=== PATIENT | female | born 1945 | race Caucasian/White ===

== ENCOUNTER 2018-11-08 05:23 | Inpatient (IN) ==
[2018-11-08] MEDS ORDERED: IPRATROPIUM/ALBUTEROL 3 ML AMPUL.NEB NEB ONE (05:34)
[2018-11-08] MEDS ORDERED: methylPREDNISolone SOD SUCC 125 MG/2 ML VIAL IV ONE (06:07)
--- NOTE | 2018-11-08 06:14 | XRay Report ---
CLINICAL INFORMATION: short of breath COMPARISON: 08/11/2013. FINDINGS: The heart is moderately enlarged - increased from prior x-ray. The mediastinum and pulmonary vessels are normal. Moderate patchy infiltration involving both bases. No effusions. IMPRESSION: Moderate patchy bibasilar infiltrates - likely aspiration or infection Moderate cardiomegaly, but no evidence CHF Interpreted and Authenticated by: Judd Birmingham 11/08/18
--- NOTE | 2018-11-08 06:23 | Emergency Department Note ---
SOB HPI - General Chief Complaint: Shortness of Breath/Dyspnea Stated Complaint: Short of Breath Time Seen by Provider: 11/08/18 06:17 - History of Present Illness 73-year-old female with known type 2 diabetes, chronic kidney disease stage III managed by , last seen just one month prior with increased pedal edema increased her Lasix to 40 mg twice a day for 3 days, as well as known chronic atrial fibrillation presenting with 2 day history of intermittent dyspnea at rest, fevers, chills, sweats. Known exposure to child with croup, with increased work of breathing. No Chest pains or palpitations. Appetite has been good, no nausea vomiting diarrhea nor constipation. Of note, patient has recently been discussing with PCP potential need for oxygen therapy. - Related Data Home Medications Medication Instructions Recorded Confirmed vitamin b-12 PO QDAY 10/14/14 10/30/18 calcium carbonate 500 mg calcium 1,000 mg PO QDAY tab 04/22/18 10/30/18 (1,250 mg) tablet cholecalciferol (vitamin D3) 1,000 2,000 unit PO QDAY cap 04/22/18 10/30/18 unit capsule levetiracetam 500 mg tablet 500 mg PO BID tab 04/22/18 10/30/18 Previous Rx's Medication Instructions Recorded diabetic shoes #1 each 06/13/15 citalopram 20 mg tablet 20 mg PO QDAY #90 tab 05/26/18 amlodipine 5 mg tablet 5 mg PO QDAY #90 tab 06/12/18 carvedilol 25 mg tablet 25 mg PO BID #180 tab 07/21/18 furosemide 40 mg tablet 40 mg PO QDAY #90 tab 07/21/18 losartan 100 mg tablet 100 mg PO QDAY #90 tab 07/21/18 gabapentin 300 mg capsule 600 mg PO TID #540 cap 09/18/18 ropinirole 2 mg tablet 2 mg PO BID #180 tab 09/22/18 calcitriol 0.25 mcg capsule 0.25 mcg PO Q OTHER DAY #45 cap 10/12/18 allopurinol 100 mg tablet 200 mg PO QDAY #180 tab 10/13/18 glipizide 5 mg tablet 5 mg PO BID #60 tab 10/20/18 docusate sodium 100 mg capsule 100 mg PO BID #180 cap 10/28/18 warfarin 5 mg tablet 5 mg PO .COMPLEX #100 tab 10/30/18 Allergies Allergy/AdvReac Type Severity Reaction Status Date / Time No Known Drug Allergies Allergy Verified 10/30/18 15:15 Review of Systems All systems ED: reviewed and negative except as stated. Past Medical History - Past Medical History Attestation: Yes: The following information was validated with the patient. Source: nursing notes reviewed Medical history: Reports: atrial fibrillation, CHF (questionable CHF, unknown if she's had an echo in the past), hypertension, renal disease - Social History smoking status: Never smoker Physical Exam Limitations: no limitations General appearance: alert, in distress (with increased work of breathing, abnormal I/E ratio) Head: atraumatic, normocephalic Eye: Present: normal appearance, PERRL, EOMI ENT: normal exam, normal oropharynx, mucous membranes moist Neck: Present: normal inspection, full ROM Chest: Present: normal inspection, symmetric chest wall rise Respiratory: Present: respiratory distress (increased work of breathing, able to speak in complete sentences), rales/crackles (bibasilar), wheezes (bibasilar), accessory muscle use, prolonged expiratory phase Cardiovascular: Present: irregular rhythm Abdominal: Present: soft. Absent: distention, tenderness, guarding, rebound Extremities: Present: pedal edema (1+ bilaterally up to mid calf) Course Vital Signs Temperature 99.5 F H 11/08/18 05:23 Pulse Rate 114 H 11/08/18 05:23 Respiratory Rate 19 11/08/18 05:23 Blood Pressure 169/115 11/08/18 05:23 Pulse Oximetry (%) 93 11/08/18 05:23 Temperature 99.5 F H 11/08/18 05:23 Pulse Rate 122 H 11/08/18 06:18 Respiratory Rate 22 11/08/18 06:18 Blood Pressure 169/115 11/08/18 05:23 Pulse Oximetry (%) 90 11/08/18 06:18 Shortness of Breath/Dyspnea - [facility] Narrative Medical decision making narrative: patient underwent XR chest which demonstrated Moderate patchy bibasilar infiltrates - likely aspiration or infection, with Moderate cardiomegaly, but no evidence of CHF. CBC demonstrating no evidence of leukocytosis, creatinine stable at 1.5. She was given DuoNeb treatment, Rocephin 1g IV, Azithromycin 500mg PO and 125mg SoluMedrol IV. Patient continues to require O2 at 4LPM to keep sp02 greater than 92%, down into low 80s% off O2. Discussed case with Dr. Cuellar, who is agreeable to admission, patient admitted for CAP as well as hypoxemic respiratory failure. - Lab Data Lab results reviewed: Yes I reviewed the patient's lab results. Result diagrams: 11/08/18 05:45 11/08/18 05:45 Lab Results 11/08/18 11/08/18 Range/Units 05:45 05:45 WBC 5.4 (4.5-11.0) K/mcL RBC 4.49 (4.00-5.20) M/mcL Hgb 14.0 (12.0-15.0) g/dL Hct 43.9 (36.0-48.0) % MCV 97.8 (80.0-100.0) fL MCH 31.2 (26.0-34.0) pg MCHC 31.9 (31.0-36.0) g/dL RDW 15.2 H (11.5-14.5) % Plt Count 189 (140-440) K/mcL MPV 7.6 (7.4-10.4) fL Gran % 66.3 (38.0-78.0) % Lymph % (Auto) 21.4 (15.5-49.0) % [place] % (Auto) 11.3 (1.0-12.0) % Eos % (Auto) 1.0 (0.0-7.0) % Baso % (Auto) 0 (0.0-2.0) % Gran # 3.6 (1.8-8.0) K/mcL Lymph # (Auto) 1.2 L (1.5-4.8) K/mcL [place] # (Auto) 0.6 (0.1-0.9) K/mcL Eos # (Auto) 0.1 (0.0-0.7) K/mcL Baso # (Auto) 0 (0.0-0.3) K/mcL Sodium 136 (133-145) mmol/L Potassium 4.3 (3.3-5.1) mmol/L Chloride 93 L (96-108) mmol/L Carbon Dioxide 28 (22-30) mmol/L Anion Gap 15.0 (8-16) BUN 28 H (8-23) mg/dl Creatinine 1.5 H (0.6-1.1) mg/dl GFR Calculation 35 Glucose 141 H (70-105) mg/dL Calcium 9.3 (8.6-10.4) mg/dl Total Bilirubin 1.3 H (0.0-1.0) mg/dL AST 18 (0-37) U/l ALT 10 (0-40) U/l Alkaline Phosphatase 90 (39-117) U/L Total Protein 7.6 (5.9-8.4) gm/dL Albumin 4.2 (3.2-5.2) gm/dL Globulin 3.4 (2.2-3.7) gm/dL Albumin/Globulin Ratio 1.2 (1.0-2.3) - Radiology Data Radiology results reviewed: Yes I reviewed the patient's radiology results. - EKG Data EKG attestation: Yes I reviewed and interpreted this EKG. Rhythm: Reports: A.Fib Interpretation: Reports: no acute changes Disposition Pt seen by [facility]AD[facility] REPAIRMAN/PA only: No Clinical Impression: Acute hypoxemic respiratory failure, CKD (chronic kidney disease), stage III, Restless leg syndrome, Type 2 diabetes mellitus with peripheral neuropathy Community acquired pneumonia Qualifiers: Laterality: right Lung location: lower lobe of lung Qualified Code(s): J18.1 - Lobar pneumonia, unspecified organism Disposition: Xfer As Inpt ([facility]) Referrals: Te Joyce MD [Primary Care Provider] -
[2018-11-08 06:50] LABS: Basophils # (Auto) 0 K/mcL (0.0-0.3); Basophils % (Auto) 0 % (0.0-2.0); Eosinophils # (Auto) 0.1 K/mcL (0.0-0.7); Granulocytes % (Auto) 66.3 % (38.0-78.0); Hematocrit 43.9 % (36.0-48.0); Lymphocytes # (Auto) 1.2 K/mcL (1.5-4.8); Lymphocytes % (Auto) 21.4 % (15.5-49.0); Mean Cell Volume 97.8 fL (80.0-100.0); Mean Corpuscular HGB Conc 31.9 g/dL (31.0-36.0); Mean Platelet Volume 7.6 fL (7.4-10.4); Monocytes # (Auto) 0.6 K/mcL (0.1-0.9); Monocytes % (Auto) 11.3 % (1.0-12.0); Platelet Count 189 K/mcL (140-440); RBC 4.49 M/mcL (4.00-5.20); Red Cell Distribution Width 15.2 % (11.5-14.5); WBC 5.4 K/mcL (4.5-11.0)
[2018-11-08] MEDS ORDERED: AZITHROMYCIN 250 MG TABLET PO ONE (07:10)
[2018-11-08] MEDS ORDERED: cefTRIAXone 1 GM VIAL IV ONE ×2 (07:10→10:30)
[2018-11-08 07:20] LABS: ALT/SGPT 10 U/l (0-40); AST/SGOT 18 U/l (0-37); Albumin 4.2 gm/dL (3.2-5.2); Albumin/Globulin Ratio 1.2 (1.0-2.3); Alkaline Phosphatase 90 U/L (39-117); Bilirubin,Total 1.3 mg/dL (0.0-1.0); Blood Urea Nitrogen 28 mg/dl (8-23); Calcium 9.3 mg/dl (8.6-10.4); Carbon Dioxide 28 mmol/L (22-30); Chloride 93 mmol/L (96-108); Globulin 3.4 gm/dL (2.2-3.7); Glomerular Filtration Rate 35; Glucose 141 mg/dL (70-105)
[2018-11-08] MEDS ORDERED: rOPINIRole 0.25 MG TABLET PO ONE (07:44)
[2018-11-08 08:22] LABS: ABG Methemoglobin 0.3 % (0.4-1.5); Total Hemoglobin 13.9 gm/dL (12.0-15.0); VBG Base Excess 4.2 (-2.0-2.0); VBG HCO3 29.3 mmol/L (24.0-28.0); VBG Oxygen Saturation 93.6 % (40.0-70.0); VBG PCO2 45.5 mmHg (41.0-51.0); VBG PH 7.43 U (7.32-7.42); VBG PO2 95 mmHg (25-40); VBG Total CO2 30.7 mmol/L (25.0-29.0)
[2018-11-08 09:29] LABS: INR 1.5 (0.9-1.1); Prothrombin Time 18.1 sec (11.9-14.5)
--- NOTE | 2018-11-08 09:33 | Internal Med History&Physical ---
Medical - H&P: HPI Patient information: Note initiated : 11/08/18 at 9:29 am Service Date, if different from initiated Date: [] Patient: Aidee Zepeda a 73 y/o F admitted on for Short of Breath. Chief Complaint: [] History of present illness: Ms. Zepeda is a 73 year old F with history of diastolic heart failure, atrial fibrillation obesity presents to the hospital today for evaluation of shortness of breath. The patient notes she has chronically been short of breath for many months, she also has some intermittent dizziness that has been documented previously. This has been progressively getting worse over the last few days, early this morning around 3 or 4 she had chest tightness or chest pain as she re ports when she was sleeping. She had some cough but is unable to characterize any sputum for me. Shortness of breath is worse when she lies down chest pain is worse when she lies down better when she gets up. There is also a pleuritic nature to her chest pain which is better when she is on the lateral side rather than on her back. She therefore came to the emergency room for further evaluation. She denies any fevers yesterday, denies any difficulty in swallowing denies any cough while eating, denies any headache but does admits to chronic dizziness, she still has some chest discomfort when she lies back but not when she is sitting up, she denies any nausea vomiting abdominal pain denies any bowel bladder complaints denies any new joint pains skin rashes, she does have chronic depression anxiety otherwise no acute complaints She notes that her primary care provider wants to start her on oxygen however she is not sure why she says is because she is short of breath she denies any h istory of smoking and her last echo shows a normal ejection fraction 4 years ago, she does not want to wear a sleep apnea mask and therefore has not done the sleep study so far. On presenting to the emergency room patient had a low-grade temperature of 99.5 heart rate 100-1 20 blood pressure 169/115 saturating more than 90% but needed 4 L of oxygen. At baseline she does not use oxygen at home. The patient does not have a white count, her creatinine is 1.5 which is around baseline Chest x-ray shows bilateral pneumonia, possible aspiration, she is being admitted to the hospital for further management. EKG shows atrial fibrillation, she has low voltage, poor R wave progression in chest leads. 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 (Chronic) Plantar fasciitis (Chronic) Chronic kidney disease, stage IV (severe) (Chronic) Hypertensive renal disease (Chronic) CKD (chronic kidney disease), stage III (Chronic) History of hysterectomy (Chronic) Restless leg syndrome (Chronic) Urinary incontinence (Chronic) Vitamin D deficiency (Chronic) Renal failure (Chronic 06/27/14) Acute infective pericarditis (Chronic) Osteoarthritis (Chronic) Obesity, morbid (Chronic) Hypertension, essential (Chronic) Hyperlipidemia (Chronic) Fatigue (Chronic 05/30/14) Edema (Chronic 05/30/14) Chronic low back pain (Chronic 05/30/14) Constipation (Chronic) Vulvovaginal candidiasis (Chronic) Ankle fracture (Chronic) Diabetes mellitus, type II (Inactive) Uncontrolled type 2 diabetes mellitus with peripheral neuropathy (Inactive) Surgical history: Past Surgical History (Last Reviewed 09/29/18 @ 13:13 by Ivan Talavera MD) History of arthroscopy of right knee (Chronic) History of tonsillectomy (Chronic) History of adenoidectomy (Chronic) Pertinent family history: Family History (Last Reviewed 09/29/18 @ 13:13 by Ivan Talavera MD) Father Atherosclerosis of coronary artery Diabetes mellitus Mother Injury of head Unknown Malignant neoplasm Medical - H&P: Meds Home Medications Medication Instructions Recorded Confirmed Type vitamin b-12 PO QDAY 10/14/14 10/30/18 History diabetic shoes #1 each 06/13/15 10/30/18 Rx calcium carbonate 500 mg calcium 1,000 mg PO QDAY tab 04/22/18 10/30/18 History (1,250 mg) tablet cholecalciferol (vitamin D3) 1,000 2,000 unit PO QDAY cap 04/22/18 10/30/18 History unit capsule levetiracetam 500 mg tablet 500 mg PO BID tab 04/22/18 10/30/18 History citalopram 20 mg tablet 20 mg PO QDAY #90 tab 05/26/18 10/30/18 Rx amlodipine 5 mg tablet 5 mg PO QDAY #90 tab 06/12/18 10/30/18 Rx carvedilol 25 mg tablet 25 mg PO BID #180 tab 07/21/18 10/30/18 Rx furosemide 40 mg tablet 40 mg PO QDAY #90 tab 07/21/18 10/30/18 Rx losartan 100 mg tablet 100 mg PO QDAY #90 tab 07/21/18 10/30/18 Rx gabapentin 300 mg capsule 600 mg PO TID #540 cap 09/18/18 10/30/18 Rx ropinirole 2 mg tablet 2 mg PO BID #180 tab 09/22/18 10/30/18 Rx calcitriol 0.25 mcg capsule 0.25 mcg PO Q OTHER DAY #45 cap 10/12/18 10/30/18 Rx allopurinol 100 mg tablet 200 mg PO QDAY #180 tab 10/13/18 10/30/18 Rx glipizide 5 mg tablet 5 mg PO BID #60 tab 10/20/18 10/30/18 Rx docusate sodium 100 mg capsule 100 mg PO BID #180 cap 10/28/18 10/30/18 Rx warfarin 5 mg tablet 5 mg PO .COMPLEX #100 tab 10/30/18 10/30/18 Rx Allergies Allergy/AdvReac Type Severity Reaction Status Date / Time No Known Drug Allergies Allergy Verified 10/30/18 15:15 Medical - H&P: Exam - Constitutional Vitals: Temp Pulse Resp BP Pulse Ox 99.5 F H 122 H 22 169/115 90 11/08/18 05:23 11/08/18 06:18 11/08/18 06:18 11/08/18 05:23 11/08/18 06:18 Exam: GENERAL: The patient is a well-developed, well-nourished in no apparent distress. Is alert and oriented x3. Morbidly obese individual with significant midsize portion, thin legs VITAL SIGNS: Reviewed and as noted elsewhere. HEENT: Head is normocephalic and atraumatic. Extraocular muscles are intact. Pup ils are equal, round, and reactive to light. Nares appeared normal. Mouth appears any without lesions. Mucous membranes are moist. NECK: Normal to inspection, Supple, No lymphadenopathy or thyromegaly. LUNGS: Air entry equal on both sides, mild exp wheeze, bilbasilar crackles, pt speaking full sentences no accessory muscle use HEART: Regular rate and rhythm normal, S1 and S2 heard, no Gallop, S3 or Rub Noted, No Gross murmur heard. ABDOMEN: Soft, nontender, and nondistended. Positive bowel sounds. No hepatosplenomegaly was noted. Large obese abdomen EXTREMITIES: No cyanosis, clubbing, rash, lesions or edema. NEUROLOGIC: Cranial nerves II through XII are grossly intact. Motor and Sensory System Grossly Intact PSYCHIATRIC: Normal affect, Normal Mood. Appropriate Behavior. SKIN: No ulceration or wounds noted, No jaundice, No rash noted. Medical - H&P: Reslt - Labs CBC & Chem 7: 11/08/18 05:45 11/08/18 05:45 Labs: Short CBC 11/08/18 Range/Units 05:45 WBC 5.4 (4.5-11.0) K/mcL Hgb 14.0 (12.0-15.0) g/dL Hct 43.9 (36.0-48.0) % Plt Count 189 (140-440) K/mcL BMP 11/08/18 05:45 Sodium 136 Potassium 4.3 Chloride 93 L Carbon Dioxide 28 BUN 28 H Creatinine 1.5 H Glucose 141 H Calcium 9.3 Liver Function 11/08/18 Range/Units 05:45 Total Bilirubin 1.3 H (0.0-1.0) mg/dL AST 18 (0-37) U/l ALT 10 (0-40) U/l Alkaline Phosphatase 90 (39-117) U/L Albumin 4.2 (3.2-5.2) gm/dL - ABG Interpretation ABG results: 11/08/18 07:56 ABG Methemoglobin 0.3 L VBG pH 7.43 H VBG pCO2 45.5 VBG pO2 95 H VBG HCO3 29.3 H VBG Total CO2 30.7 H VBG O2 Saturation 93.6 H VBG Base Excess 4.2 H Medical - H&P: A/P - Narrative A/P Narrative: A/p Acute hypoxic respiratory failure -Keep oxygen > 90 , presently on 3-4L, due to active infectino Pneumonia -Aspiration pneumonia, vs CAP -Rocephin, Azithro, flagyl for now, no h/o admission to any hospital in last 3 months, no recent ABX use -send sputum cx, -send blood cultures, abx already given unfortunately. Atrial Fibrillation -mild tachycardia in ER, pt waso monika rea, monitor -resume beta blocers, -pt on coumadin for cva prophylaxis, check INR, coumadin management per pharmacy. Hypertension -BP Elevated, monitor, resume home bp meds DM -type 2 -ssi insulin for glucose control CKD, stage 3 -follows with Dr Crane -creat is 1.5, stable at baseline MOrbid obesity, bmi 45 -outpatient follow up -given predominantly central obesity, check cortisol level, tsh is neg last month -pt will benefit from outpatient sleep study Congestive heart failuire -h/o diastolic CHF? lVH on previous echo -repeat Echo Restless leg syndrome -resume home meds DVT on coumadin Diet Carb consistent,cardiac Full code Social History - Social History marital status: education level: high school occupational status: retired other: 4 children and 5 grandchildren - Tobacco smoking status: Never smoker - Alcohol alcohol intake frequency: does not drink - Substance use substance use type: marijuana
[2018-11-08] MEDS ORDERED: cloNIDine HCL 0.1 MG TABLET PO PRN (10:22)
[2018-11-08] MEDS ORDERED: oxyCODONE HCL 5 MG TABLET PO PRN (10:22)
[2018-11-08] MEDS ORDERED: ALBUTEROL SULFATE 2.5 MG/3 ML NEBULIZER NEB PRN (10:22)
[2018-11-08] MEDS ORDERED: DEXTROSE 50% 50 ML VIAL IV PRN (10:22)
[2018-11-08] MEDS ORDERED: CARVEDILOL 12.5 MG TABLET PO ONE (10:22)
[2018-11-08] MEDS ORDERED: DEXTROSE 31 GM ORAL.SUSP PO PRN (10:22)
[2018-11-08] MEDS ORDERED: NALOXONE HCL 0.4 MG/ML VIAL IV PRN (10:22)
[2018-11-08] MEDS: IPRATROPIUM/ALBUTEROL 3 ML AMPUL.NEB NEB SCH ×4 (10:58→22:57)
[2018-11-08] MEDS: metroNIDAZOLE 500 MG/100 ML BAG IV SCH ×2 (11:00→21:11)
[2018-11-08] MEDS: ACETAMINOPHEN 325 MG TABLET PO PRN ×2 (11:09→21:55)
[2018-11-08] MEDS: INSULIN LISPRO 1 UNIT/0.01 ML UNIT SQ SCH ×3 (11:47→21:10)
[2018-11-08] MEDS: rOPINIRole 1 MG TABLET PO SCH ×2 (12:29→21:11)
[2018-11-08] MEDS: GABAPENTIN 300 MG CAPSULE PO SCH ×2 (13:44→21:11)
[2018-11-08] MEDS: 0.9 % SODIUM CHLORIDE 10 ML SYRINGE IV SCH ×2 (13:45→21:12)
[2018-11-08] MEDS ORDERED: WARFARIN 7.5 MG TABLET PO ONE (14:00)
[2018-11-08] MEDS: CARVEDILOL 12.5 MG TABLET PO SCH (17:14)
[2018-11-08] MEDS: glipiZIDE 5 MG TABLET PO SCH (17:14)
[2018-11-08] MEDS: levETIRAcetam 500 MG TABLET PO SCH (21:11)
[2018-11-08] MEDS: DOCUSATE SODIUM 100 MG CAPSULE PO SCH (21:11)
[2018-11-09] MEDS: IPRATROPIUM/ALBUTEROL 3 ML AMPUL.NEB NEB SCH ×6 (02:53→23:06)
[2018-11-09] MEDS: metroNIDAZOLE 500 MG/100 ML BAG IV SCH ×3 (05:23→22:25)
[2018-11-09] MEDS: 0.9 % SODIUM CHLORIDE 10 ML SYRINGE IV SCH ×3 (05:27→22:26)
[2018-11-09 06:10] LABS: INR 1.6 (0.9-1.1); Prothrombin Time 18.7 sec (11.9-14.5)
[2018-11-09] MEDS: glipiZIDE 5 MG TABLET PO SCH ×2 (07:46→16:25)
[2018-11-09] MEDS: INSULIN LISPRO 1 UNIT/0.01 ML UNIT SQ SCH ×4 (07:46→20:52)
[2018-11-09] MEDS: CITALOPRAM 20 MG TABLET PO SCH (09:43)
[2018-11-09] MEDS: DOCUSATE SODIUM 100 MG CAPSULE PO SCH ×2 (09:43→20:51)
[2018-11-09] MEDS: levETIRAcetam 500 MG TABLET PO SCH ×2 (09:43→20:51)
[2018-11-09] MEDS: rOPINIRole 1 MG TABLET PO SCH ×2 (09:44→20:51)
[2018-11-09] MEDS: CARVEDILOL 12.5 MG TABLET PO SCH ×2 (09:44→16:25)
[2018-11-09] MEDS: LOSARTAN 50 MG TABLET PO SCH (09:44)
[2018-11-09] MEDS: amLODIPine 5 MG TABLET PO SCH (09:44)
[2018-11-09] MEDS: GABAPENTIN 300 MG CAPSULE PO SCH ×3 (09:44→20:51)
[2018-11-09] MEDS: FUROSEMIDE 40 MG TABLET PO SCH (09:44)
[2018-11-09] MEDS: VITAMIN D3 1,000 UNIT TABLET PO SCH (09:44)
[2018-11-09] MEDS: CALCIUM (OYSTER SHELL) 500 MG TABLET PO SCH (09:44)
[2018-11-09] MEDS: CALCITRIOL 0.25 MCG CAPSULE PO SCH (09:44)
[2018-11-09] MEDS: ALLOPURINOL 100 MG TABLET PO SCH (09:44)
[2018-11-09] MEDS: predniSONE 20 MG TABLET PO SCH (09:44)
[2018-11-09] MEDS: AZITHROMYCIN 250 MG TABLET PO SCH (09:44)
[2018-11-09] MEDS: cefTRIAXone 2 GM in DEXTROSE 5% IN WATER 50 ML IV SCH (09:45)
[2018-11-09 10:35] LABS: ALT/SGPT 11 U/l (0-40); AST/SGOT 15 U/l (0-37); Albumin 4.1 gm/dL (3.2-5.2); Albumin/Globulin Ratio 1.1 (1.0-2.3); Alkaline Phosphatase 81 U/L (39-117); Bilirubin,Direct < 0.2 mg/dL (0.0-0.3); Bilirubin,Total 0.4 mg/dL (0.0-1.0); Blood Urea Nitrogen 36 mg/dl (8-23); Carbon Dioxide 28 mmol/L (22-30); Chloride 95 mmol/L (96-108); Globulin 3.7 gm/dL (2.2-3.7); Glomerular Filtration Rate 38; Glucose 250 mg/dL (70-105); Lactate Dehydrogenase 296 U/L (94-250); Phosphorous 4.4 mg/dL (2.7-4.5); Triglycerides 82 mg/dl (<150); Uric Acid 6.1 mg/dL (2.5-8.0)
[2018-11-09 11:44] LABS: Basophils # (Auto) 0 K/mcL (0.0-0.3); Basophils % (Auto) 0.2 % (0.0-2.0); Eosinophils # (Auto) 0 K/mcL (0.0-0.7); Eosinophils % (Auto) 0.4 % (0.0-7.0); Granulocytes % (Auto) 84.8 % (38.0-78.0); Hematocrit 41.1 % (36.0-48.0); Hemoglobin 13.7 g/dL (12.0-15.0); Lymphocytes # (Auto) 0.7 K/mcL (1.5-4.8); Lymphocytes % (Auto) 9.8 % (15.5-49.0); Mean Cell Volume 95.5 fL (80.0-100.0); Mean Corpuscular HGB Conc 33.4 g/dL (31.0-36.0); Mean Platelet Volume 7.3 fL (7.4-10.4); Monocytes # (Auto) 0.3 K/mcL (0.1-0.9); Monocytes % (Auto) 4.8 % (1.0-12.0); Platelet Count 210 K/mcL (140-440); Red Cell Distribution Width 14.4 % (11.5-14.5); WBC 6.9 K/mcL (4.5-11.0)
--- NOTE | 2018-11-09 12:08 | Internal Med Progress Note ---
Medical - PN: Subj Patient information: Note initiated : 11/09/18 at 12:04 pm Service Date, if different from initiated Date: [] Patient: Aidee Zepeda a 73 y/o F admitted on 11/08/18 for Short of Breath. Chief Complaint: [] Interval history: Ms. Zepeda is a 73 year old F with history of diastolic heart failure, atrial fibrillation obesity presents to the hospital today for evaluation of shortness of breath. The patient notes she has chronically been short of breath for many months, she also has some intermittent dizziness that has been documented previously. This has been progressively getting worse over the last few days, early this morning around 3 or 4 she had chest tightness or chest pain as she re ports when she was sleeping. She had some cough but is unable to characterize any sputum for me. Shortness of breath is worse when she lies down chest pain is worse when she lies down better when she gets up. There is also a pleuritic nature to her chest pain which is better when she is on the lateral side rather than on her back. She therefore came to the emergency room for further evaluation. She denies any fevers yesterday, denies any difficulty in swallowing denies any cough while eating, denies any headache but does admits to chronic dizziness, she still has some chest discomfort when she lies back but not when she is sitting up, she denies any nausea vomiting abdominal pain denies any bowel bladder complaints denies any new joint pains skin rashes, she does have chronic depression anxiety otherwise no acute complaints She notes that her primary care provider wants to start her on oxygen however she is not sure why she says is because she is short of breath she denies any h istory of smoking and her last echo shows a normal ejection fraction 4 years ago, she does not want to wear a sleep apnea mask and therefore has not done the sleep study so far. On presenting to the emergency room patient had a low-grade temperature of 99.5 heart rate 100-1 20 blood pressure 169/115 saturating more than 90% but needed 4 L of oxygen. At baseline she does not use oxygen at home. The patient does not have a white count, her creatinine is 1.5 which is around baseline Chest x-ray shows bilateral pneumonia, possible aspiration, she is being admitted to the hospital for further management. EKG shows atrial fibrillation, she has low voltage, poor R wave progression in chest leads. 11/09 Patient seen and examined, sitting comfortably in her chair, on 2 L of oxygen to keep oxygen saturation more than 90% has no new complaints or concerns feels much better since yesterday. Hemodynamically stable rate well controlled. Labs are stable No growth microbiology Pertinent ROS: Denies headache, dizziness Denies chest pain, palpitations Denies cough or shortness of breath Denies abdominal pain, nausea or vomiting. - Constitutional Vitals: Vital Signs Temp Pulse Resp BP Pulse Ox 98.8 F 88 18 134/84 92 11/09/18 11:42 11/09/18 11:42 11/09/18 11:42 11/09/18 11:42 11/09/18 11:42 Period Temp Pulse Resp BP Sys/Pardo Pulse Ox Last 24 Hr 97 F-99.2 F 80-114 16-20 121-146/79-89 92-98 Intake and Output 11/08/18 11/09/18 11/09/18 21:59 05:59 13:59 Intake Total 720 300 100 Output Total 1150 500 Balance -430 -200 100 Weight 252 lb Intake & Output: Intake & Output 11/08/18 11/09/18 11/09/18 21:59 05:59 13:59 Intake Total 720 300 100 Output Total 1150 500 Balance -430 -200 100 Weight 252 lb Intake: IV 100 100 Oral 720 200 Output: Void Amount 1150 500 Other: Meal Dinner Percent of Meal Consumed 100% Feeding Ability Independent Urine Appearance Clear Clear Urine Color Bright Yellow Bright Yellow Urine Odor Normal Normal Stool Size Moderate Stool Color Brown Stool Consistency Loose # Voids 1 # Bowel Movements 1 Exam: Constitutional; Afebrile, cooperative, alert, not in distress. Respiratory system: Air Entry equal on both sides, No crackles or wheezing, no rhonchi. CVS- Rate rhythm regular, S1,S2 heard, no gallop, no rub. 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 Medical - PN: Obj Da - Labs CBC & Chem 7: 11/09/18 10:06 11/09/18 09:16 Labs: Abnormal Lab Results 11/09/18 11/09/18 11/09/18 10:06 09:16 04:39 RDW MPV 7.3 L Gran % 84.8 H Lymph % (Auto) 9.8 L Lymph # (Auto) 0.7 L PT 18.7 H INR 1.6 H ABG Methemoglobin VBG pH VBG pO2 VBG HCO3 VBG Total CO2 VBG O2 Saturation VBG Base Excess Carboxyhemoglobin Chloride 95 L BUN 36 H Creatinine 1.4 H Glucose 250 H Total Bilirubin GGT 53 H Lactate Dehydrogenase 296 H 11/08/18 11/08/18 11/08/18 07:56 05:45 05:45 RDW 15.2 H MPV Gran % Lymph % (Auto) Lymph # (Auto) 1.2 L PT INR ABG Methemoglobin 0.3 L VBG pH 7.43 H VBG pO2 95 H VBG HCO3 29.3 H VBG Total CO2 30.7 H VBG O2 Saturation 93.6 H VBG Base Excess 4.2 H Carboxyhemoglobin 3.5 H Chloride 93 L BUN 28 H Creatinine 1.5 H Glucose 141 H Total Bilirubin 1.3 H GGT Lactate Dehydrogenase 11/08/18 05:15 RDW MPV Gran % Lymph % (Auto) Lymph # (Auto) PT 18.1 H INR 1.5 H ABG Methemoglobin VBG pH VBG pO2 VBG HCO3 VBG Total CO2 VBG O2 Saturation VBG Base Excess Carboxyhemoglobin Chloride BUN Creatinine Glucose Total Bilirubin GGT Lactate Dehydrogenase Meds: Medications Acetaminophen (Tylenol) 650 mg PO Q6HP PRN PRN Reason: PAIN/FEVER > 101 Last Admin: 11/08/18 21:55 Dose: 650 mg Documented by: Albuterol Sulfate (Ventolin) 2.5 mg NEB Q2HP PRN PRN Reason: Shortness Of Breath Albuterol/Ipratropium (Duoneb) 3 ml NEB Q4HRT [facility] Last Admin: 11/09/18 11:08 Dose: 3 ml Documented by: Allopurinol (Zyloprim) 200 mg PO QDAY [facility] Last Admin: 11/09/18 09:44 Dose: 200 mg Documented by: Amlodipine Besylate (Norvasc) 5 mg PO QDAY [facility] Last Admin: 11/09/18 09:44 Dose: 5 mg Documented by: Azithromycin (Zithromax) 250 mg PO DAILY [facility]; Protocol Stop: 11/12/18 09:01 Last Admin: 11/09/18 09:44 Dose: 250 mg Documented by: Calcitriol (Rocaltrol) 0.25 mcg PO Q48@0900 [facility] Last Admin: 11/09/18 09:44 Dose: 0.25 mcg Documented by: Calcium Carbonate/Glycine (Oscal) 1,000 mg PO QDAY [facility] Last Admin: 11/09/18 09:44 Dose: 1,000 mg Documented by: Carvedilol (Coreg) 25 mg PO BIDCC [facility] Last Admin: 11/09/18 09:44 Dose: 25 mg Documented by: Citalopram Hydrobromide (Celexa) 20 mg PO QDAY [facility] Last Admin: 11/09/18 09:43 Dose: 20 mg Documented by: Clonidine HCl (Catapres) 0.1 mg PO Q4HP PRN PRN Reason: Hypertension Dextrose (Dextrose 50%) 0 ml IV UD PRN PRN Reason: Hypoglycemia Diagnostic Test (Pha) (Accu-Chek) 1 each FS ACHS [facility] Last Admin: 11/09/18 11:36 Dose: 1 each Documented by: Docusate Sodium (Colace) 100 mg PO BID [facility] Last Admin: 11/09/18 09:43 Dose: 100 mg Documented by: Furosemide (Lasix) 40 mg PO QDAY [facility] Last Admin: 11/09/18 09:44 Dose: 40 mg Documented by: Gabapentin (Neurontin) 600 mg PO TID [facility] Last Admin: 11/09/18 09:44 Dose: 600 mg Documented by: Glipizide (Glucotrol) 5 mg PO BIDAC [facility] Last Admin: 11/09/18 07:46 Dose: 5 mg Documented by: Glucose (Insta-Glucose) 15 gm PO PRN PRN PRN Reason: Hypoglycemia Ceftriaxone Sodium 2 gm/ (Dextrose) 50 mls @ 100 mls/hr IV Q24H [facility]; Protocol Last Admin: 11/09/18 09:45 Dose: 100 mls/hr Documented by: Metronidazole (Flagyl) 500 mg in 100 mls @ 100 mls/hr IV Q8H [facility]; Protocol Last Infusion: 11/09/18 11:38 Dose: Infused Documented by: Insulin Human Lispro (Humalog) 0 unit SQ [facility]; Protocol Last Admin: 11/09/18 07:46 Dose: 1 units Documented by: Levetiracetam (Keppra) 500 mg PO BID [facility] Last Admin: 11/09/18 09:43 Dose: 500 mg Documented by: Losartan Potassium (Cozaar) 100 mg PO DAILY [facility] Last Admin: 11/09/18 09:44 Dose: 100 mg Documented by: Naloxone HCl (Narcan) 0.1 mg IV Q2MIN PRN PRN Reason: Opiate Reversal Oxycodone HCl (Roxicodone) 5 mg PO Q4HP PRN PRN Reason: pain not responding to apap Prednisone (Prednisone) 40 mg PO [facility] Stop: 11/13/18 07:59 Last Admin: 11/09/18 09:44 Dose: 40 mg Documented by: Ropinirole HCl (Requip) 2 mg PO BID [facility] Last Admin: 11/09/18 09:44 Dose: 2 mg Documented by: Sodium Chloride (Saline Flush) 10 ml IV Q8 [facility] Last Admin: 11/09/18 05:27 Dose: 10 ml Documented by: Vitamin D (Vitamin D3) 2,000 unit PO DAILY [facility] Last Admin: 11/09/18 09:44 Dose: 2,000 unit Documented by: Warfarin Sodium (Coumadin Per Pharmacy) 1 order PO [facility] [place] Warfarin Sodium (Coumadin) 7.5 mg PO ONCE@1400 ONE Stop: 11/09/18 14:01 - ABG Interpretation ABG results: 11/08/18 07:56 ABG Methemoglobin 0.3 L VBG pH 7.43 H VBG pCO2 45.5 VBG pO2 95 H VBG HCO3 29.3 H VBG Total CO2 30.7 H VBG O2 Saturation 93.6 H VBG Base Excess 4.2 H Medical - PN: A/P - Time Spent With Patient Total time spent is greater than 50% in coordination of care (as documented) at patient's floor/unit and/or counseling patient: - Narrative A/P Narrative: A/p Acute hypoxic respiratory failure -Keep oxygen > 90 , presently on 2L, due to active infectino Pneumonia -Aspiration pneumonia, vs CAP -Rocephin, Azithro, flagyl for now, no h/o admission to any hospital in last 3 months, no recent ABX use -Cultures are negative so far continue present regimen Atrial Fibrillation -Rate well controlled, continue present management, on carvedilol Hypertension -BP stable DM -type 2 -ssi insulin for glucose control CKD, stage 3 -follows with Dr Crane -creat is 1.4, stable at baseline MOrbid obesity, bmi 45 -outpatient follow up -pt will benefit from outpatient sleep study Congestive heart failuire -h/o diastolic CHF? lVH on previous echo -repeat Echo results pending Restless leg syndrome -resume home meds DVT on coumadin Diet Carb consistent,cardiac Full code Medical - PN: Qual - Stroke Symptom Onset Unknown: No - VTE Deep Vein Thrombosis/Pulmonary Embolism Present on Admission: No
[2018-11-09] MEDS ORDERED: WARFARIN 7.5 MG TABLET PO ONE (14:00)
[2018-11-10] MEDS: ACETAMINOPHEN 325 MG TABLET PO PRN (01:33)
[2018-11-10] MEDS: IPRATROPIUM/ALBUTEROL 3 ML AMPUL.NEB NEB SCH ×6 (02:36→23:08)
[2018-11-10] MEDS: metroNIDAZOLE 500 MG/100 ML BAG IV SCH ×3 (05:34→21:55)
[2018-11-10] MEDS: 0.9 % SODIUM CHLORIDE 10 ML SYRINGE IV SCH ×3 (05:36→20:35)
[2018-11-10 06:43] LABS: INR 1.8 (0.9-1.1); Prothrombin Time 20.6 sec (11.9-14.5)
[2018-11-10 06:45] LABS: Basophils # (Auto) 0 K/mcL (0.0-0.3); Basophils % (Auto) 0.1 % (0.0-2.0); Eosinophils # (Auto) 0 K/mcL (0.0-0.7); Eosinophils % (Auto) 0 % (0.0-7.0); Granulocytes % (Auto) 79.4 % (38.0-78.0); Hematocrit 40.6 % (36.0-48.0); Hemoglobin 12.8 g/dL (12.0-15.0); Lymphocytes % (Auto) 13.2 % (15.5-49.0); Mean Cell Volume 98.5 fL (80.0-100.0); Mean Corpuscular HGB Conc 31.5 g/dL (31.0-36.0); Mean Platelet Volume 7.4 fL (7.4-10.4); Monocytes # (Auto) 0.6 K/mcL (0.1-0.9); Monocytes % (Auto) 7.3 % (1.0-12.0); Platelet Count 210 K/mcL (140-440); RBC 4.12 M/mcL (4.00-5.20); Red Cell Distribution Width 15.5 % (11.5-14.5); WBC 7.9 K/mcL (4.5-11.0)
[2018-11-10 06:49] LABS: ALT/SGPT 12 U/l (0-40); AST/SGOT 16 U/l (0-37); Albumin 3.7 gm/dL (3.2-5.2); Albumin/Globulin Ratio 1.1 (1.0-2.3); Alkaline Phosphatase 75 U/L (39-117); Bilirubin,Direct < 0.2 mg/dL (0.0-0.3); Bilirubin,Total 0.3 mg/dL (0.0-1.0); Blood Urea Nitrogen 45 mg/dl (8-23); Carbon Dioxide 26 mmol/L (22-30); Chloride 99 mmol/L (96-108); Globulin 3.3 gm/dL (2.2-3.7); Glomerular Filtration Rate 50; Glucose 81 mg/dL (70-105); Lactate Dehydrogenase 296 U/L (94-250); Triglycerides 63 mg/dl (<150); Uric Acid 6.1 mg/dL (2.5-8.0)
[2018-11-10] MEDS: predniSONE 20 MG TABLET PO SCH (07:30)
[2018-11-10] MEDS: glipiZIDE 5 MG TABLET PO SCH ×2 (07:30→17:08)
[2018-11-10] MEDS: CARVEDILOL 12.5 MG TABLET PO SCH ×2 (07:30→17:08)
[2018-11-10] MEDS: INSULIN LISPRO 1 UNIT/0.01 ML UNIT SQ SCH ×4 (07:30→20:42)
[2018-11-10] MEDS ORDERED: FUROSEMIDE 40 MG/4 ML VIAL IV ONE (09:31)
--- NOTE | 2018-11-10 09:33 | XRay Report ---
HISTORY: Hypoxia and follow-up bibasilar infiltrates FINDINGS: There are prominent increased interstitial lung markings throughout both lungs. The greatest involvement is around the right hilum and in the basilar segments. There has been improvement around the left hilum since 11/08/18. Lung volumes are normal. There is no pleural effusion. The heart is moderately enlarged. The pulmonary vessels are partially obscured by the interstitial lung disease. IMPRESSION: Bilateral interstitial infiltrates. There has been improvement in the central portion of the left lung since 11/08/18 Stable moderate cardiomegaly Interpreted and Authenticated by: Juma Lucero 11/10/18
[2018-11-10] MEDS: rOPINIRole 1 MG TABLET PO SCH ×2 (09:43→20:32)
[2018-11-10] MEDS: GABAPENTIN 300 MG CAPSULE PO SCH ×3 (09:43→20:32)
[2018-11-10] MEDS: CALCIUM (OYSTER SHELL) 500 MG TABLET PO SCH (09:44)
[2018-11-10] MEDS: CITALOPRAM 20 MG TABLET PO SCH (09:45)
[2018-11-10] MEDS: LOSARTAN 50 MG TABLET PO SCH (09:45)
[2018-11-10] MEDS: VITAMIN D3 1,000 UNIT TABLET PO SCH (09:45)
[2018-11-10] MEDS: levETIRAcetam 500 MG TABLET PO SCH ×2 (09:45→20:32)
[2018-11-10] MEDS: FUROSEMIDE 40 MG TABLET PO SCH (09:45)
[2018-11-10] MEDS: ALLOPURINOL 100 MG TABLET PO SCH (09:45)
[2018-11-10] MEDS: amLODIPine 5 MG TABLET PO SCH (09:46)
[2018-11-10] MEDS: DOCUSATE SODIUM 100 MG CAPSULE PO SCH ×2 (09:46→20:32)
[2018-11-10] MEDS: AZITHROMYCIN 250 MG TABLET PO SCH (09:46)
[2018-11-10] MEDS: cefTRIAXone 2 GM in DEXTROSE 5% IN WATER 50 ML IV SCH (09:47)
--- NOTE | 2018-11-10 10:25 | Internal Med Progress Note ---
Medical - PN: Subj Patient information: Note initiated : 11/10/18 at 10:24 am Service Date, if different from initiated Date: [] Patient: Aidee Zepeda a 73 y/o F admitted on 11/08/18 for Short of Breath. Chief Complaint: [] Interval history: Ms. Zepeda is a 73 year old F with history of diastolic heart failure, atrial fibrillation obesity presents to the hospital today for evaluation of shortness of breath. The patient notes she has chronically been short of breath for many months, she also has some intermittent dizziness that has been documented previously. This has been progressively getting worse over the last few days, early this morning around 3 or 4 she had chest tightness or chest pain as she re ports when she was sleeping. She had some cough but is unable to characterize any sputum for me. Shortness of breath is worse when she lies down chest pain is worse when she lies down better when she gets up. There is also a pleuritic nature to her chest pain which is better when she is on the lateral side rather than on her back. She therefore came to the emergency room for further evaluation. She denies any fevers yesterday, denies any difficulty in swallowing denies any cough while eating, denies any headache but does admits to chronic dizziness, she still has some chest discomfort when she lies back but not when she is sitting up, she denies any nausea vomiting abdominal pain denies any bowel bladder complaints denies any new joint pains skin rashes, she does have chronic depression anxiety otherwise no acute complaints She notes that her primary care provider wants to start her on oxygen however she is not sure why she says is because she is short of breath she denies any h istory of smoking and her last echo shows a normal ejection fraction 4 years ago, she does not want to wear a sleep apnea mask and therefore has not done the sleep study so far. On presenting to the emergency room patient had a low-grade temperature of 99.5 heart rate 100-1 20 blood pressure 169/115 saturating more than 90% but needed 4 L of oxygen. At baseline she does not use oxygen at home. The patient does not have a white count, her creatinine is 1.5 which is around baseline Chest x-ray shows bilateral pneumonia, possible aspiration, she is being admitted to the hospital for further management. EKG shows atrial fibrillation, she has low voltage, poor R wave progression in chest leads. 11/09 Patient seen and examined, sitting comfortably in her chair, on 2 L of oxygen to keep oxygen saturation more than 90% has no new complaints or concerns feels much better since yesterday. Hemodynamically stable rate well controlled. Labs are stable No growth microbiology 11/10 Patient seen and examined, no acute overnight events. Still on 2 L of oxygen, Patient feels much better. Labs are stable Chest x-ray shows significant improvement but does have bilateral interstitial edema IV Lasix x1 to be given today Pertinent ROS: Denies headache, dizziness Denies chest pain, palpitations Denies cough or shortness of breath Denies abdominal pain, nausea or vomiting. - Constitutional Vitals: Vital Signs Temp Pulse Resp BP Pulse Ox 96.4 F L 86 12 141/84 94 11/10/18 08:00 11/10/18 08:00 11/10/18 08:00 11/10/18 08:00 11/10/18 08:00 Period Temp Pulse Resp BP Sys/Pardo Pulse Ox Last 24 Hr 96.4 F-98.9 F 78-101 12-18 117-147/67-94 90-95 Intake and Output 11/09/18 11/10/18 11/10/18 21:59 05:59 13:59 Intake Total 340 300 400 Output Total 750 1000 200 Balance -410 -700 200 Weight 252 lb 255 lb 8 oz Intake & Output: Intake & Output 11/09/18 11/10/18 11/10/18 21:59 05:59 13:59 Intake Total 340 300 400 Output Total 750 1000 200 Balance -410 -700 200 Weight 252 lb 255 lb 8 oz Intake: IV 100 100 100 Oral 240 200 300 Output: Void Amount 750 1000 200 Other: Meal Lunch Breakfast Percent of Meal Consumed 100% 100% Feeding Ability Independent Independent Urine Appearance Clear Clear Urine Color Dark Yellow Straw Urine Odor Normal Normal Stool Size Moderate Stool Consistency Formed # Bowel Movements 1 Exam: Constitutional; Afebrile, cooperative, alert, not in distress. Respiratory system: Air Entry equal on both sides, No crackles, very mild expiratory wheeze, no rhonchi. CVS- Rate rhythm regular, S1,S2 heard, no gallop, no rub. 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 Medical - PN: Obj Da - Labs CBC & Chem 7: 11/10/18 03:53 11/10/18 03:53 Labs: Abnormal Lab Results 11/10/18 11/10/18 11/10/18 03:53 03:53 03:53 RDW 15.5 H MPV Gran % 79.4 H Lymph % (Auto) 13.2 L Lymph # (Auto) 1.0 L PT 20.6 H INR 1.8 H ABG Methemoglobin VBG pH VBG pO2 VBG HCO3 VBG Total CO2 VBG O2 Saturation VBG Base Excess Carboxyhemoglobin Chloride BUN 45 H Creatinine Glucose Total Bilirubin GGT 46 H Lactate Dehydrogenase 296 H 11/09/18 11/09/18 11/09/18 10:06 09:16 04:39 RDW MPV 7.3 L Gran % 84.8 H Lymph % (Auto) 9.8 L Lymph # (Auto) 0.7 L PT 18.7 H INR 1.6 H ABG Methemoglobin VBG pH VBG pO2 VBG HCO3 VBG Total CO2 VBG O2 Saturation VBG Base Excess Carboxyhemoglobin Chloride 95 L BUN 36 H Creatinine 1.4 H Glucose 250 H Total Bilirubin GGT 53 H Lactate Dehydrogenase 296 H 11/08/18 11/08/18 11/08/18 07:56 05:45 05:45 RDW 15.2 H MPV Gran % Lymph % (Auto) Lymph # (Auto) 1.2 L PT INR ABG Methemoglobin 0.3 L VBG pH 7.43 H VBG pO2 95 H VBG HCO3 29.3 H VBG Total CO2 30.7 H VBG O2 Saturation 93.6 H VBG Base Excess 4.2 H Carboxyhemoglobin 3.5 H Chloride 93 L BUN 28 H Creatinine 1.5 H Glucose 141 H Total Bilirubin 1.3 H GGT Lactate Dehydrogenase 11/08/18 05:15 RDW MPV Gran % Lymph % (Auto) Lymph # (Auto) PT 18.1 H INR 1.5 H ABG Methemoglobin VBG pH VBG pO2 VBG HCO3 VBG Total CO2 VBG O2 Saturation VBG Base Excess Carboxyhemoglobin Chloride BUN Creatinine Glucose Total Bilirubin GGT Lactate Dehydrogenase Meds: Medications Acetaminophen (Tylenol) 650 mg PO Q6HP PRN PRN Reason: PAIN/FEVER > 101 Last Admin: 11/10/18 01:33 Dose: 650 mg Documented by: Albuterol Sulfate (Ventolin) 2.5 mg NEB Q2HP PRN PRN Reason: Shortness Of Breath Albuterol/Ipratropium (Duoneb) 3 ml NEB Q4HRT [facility] Last Admin: 11/10/18 07:18 Dose: 3 ml Documented by: Allopurinol (Zyloprim) 200 mg PO QDAY [facility] Last Admin: 11/10/18 09:45 Dose: 200 mg Documented by: Amlodipine Besylate (Norvasc) 5 mg PO QDAY [facility] Last Admin: 11/10/18 09:46 Dose: 5 mg Documented by: Azithromycin (Zithromax) 250 mg PO DAILY [facility]; Protocol Stop: 11/12/18 09:01 Last Admin: 11/10/18 09:46 Dose: 250 mg Documented by: Calcitriol (Rocaltrol) 0.25 mcg PO Q48@0900 [facility] Last Admin: 11/09/18 09:44 Dose: 0.25 mcg Documented by: Calcium Carbonate/Glycine (Oscal) 1,000 mg PO QDAY [facility] Last Admin: 11/10/18 09:44 Dose: 1,000 mg Documented by: [facility] Last Admin: 11/10/18 07:30 Dose: 25 mg Documented by: Citalopram Hydrobromide (Celexa) 20 mg PO QDAY [facility] Last Admin: 11/10/18 09:45 Dose: 20 mg Documented by: Clonidine HCl (Catapres) 0.1 mg PO Q4HP PRN PRN Reason: Hypertension Dextrose (Dextrose 50%) 0 ml IV UD PRN PRN Reason: Hypoglycemia Diagnostic Test (Pha) (Accu-Chek) 1 each FS ACHS [facility] Last Admin: 11/10/18 07:29 Dose: 1 each Documented by: Docusate Sodium (Colace) 100 mg PO BID [facility] Last Admin: 11/10/18 09:46 Dose: 100 mg Documented by: Furosemide (Lasix) 40 mg PO QDAY [facility] Last Admin: 11/10/18 09:45 Dose: 40 mg Documented by: Gabapentin (Neurontin) 600 mg PO TID [facility] Last Admin: 11/10/18 09:43 Dose: 600 mg Documented by: Glipizide (Glucotrol) 5 mg PO BIDAC [facility] Last Admin: 11/10/18 07:30 Dose: 5 mg Documented by: Glucose (Insta-Glucose) 15 gm PO PRN PRN PRN Reason: Hypoglycemia Ceftriaxone Sodium 2 gm/ (Dextrose) 50 mls @ 100 mls/hr IV Q24H [facility]; Protocol Last Admin: 11/10/18 09:47 Dose: 100 mls/hr Documented by: Metronidazole (Flagyl) 500 mg in 100 mls @ 100 mls/hr IV Q8H [facility]; Protocol Last Infusion: 11/10/18 07:31 Dose: Infused Documented by: Insulin Human Lispro (Humalog) 0 unit SQ ACHS [facility]; Protocol Last Admin: 11/10/18 07:30 Dose: Not Given Documented by: Levetiracetam (Keppra) 500 mg PO BID [facility] Last Admin: 11/10/18 09:45 Dose: 500 mg Documented by: Losartan Potassium (Cozaar) 100 mg PO DAILY [facility] Last Admin: 11/10/18 09:45 Dose: 100 mg Documented by: Naloxone HCl (Narcan) 0.1 mg IV Q2MIN PRN PRN Reason: Opiate Reversal Oxycodone HCl (Roxicodone) 5 mg PO Q4HP PRN PRN Reason: pain not responding to apap Last Admin: 11/10/18 09:44 Dose: 5 mg Documented by: Prednisone (Prednisone) 40 mg PO [facility] Stop: 11/13/18 07:59 Last Admin: 11/10/18 07:30 Dose: 40 mg Documented by: Ropinirole HCl (Requip) 2 mg PO BID [facility] Last Admin: 11/10/18 09:43 Dose: 2 mg Documented by: Sodium Chloride (Saline Flush) 10 ml IV Q8 [facility] Last Admin: 11/10/18 05:36 Dose: 10 ml Documented by: Vitamin D (Vitamin D3) 2,000 unit PO DAILY [facility] Last Admin: 11/10/18 09:45 Dose: 2,000 unit Documented by: Warfarin Sodium (Coumadin Per Pharmacy) 1 order PO [facility] [place] Warfarin Sodium (Coumadin) 5 mg PO ONCE@1400 ONE Stop: 11/10/18 14:01 - ABG Interpretation ABG results: 11/08/18 07:56 ABG Methemoglobin 0.3 L VBG pH 7.43 H VBG pCO2 45.5 VBG pO2 95 H VBG HCO3 29.3 H VBG Total CO2 30.7 H VBG O2 Saturation 93.6 H VBG Base Excess 4.2 H Medical - PN: A/P - Time Spent With Patient Total time spent is greater than 50% in coordination of care (as documented) at patient's floor/unit and/or counseling patient: - Narrative A/P Narrative: A/p Acute hypoxic respiratory failure -Keep oxygen > 90 , presently on 2L, due to active infection Pneumonia -Aspiration pneumonia, vs CAP -Rocephin, Azithro, flagyl for now, no h/o admission to any hospital in last 3 months, no recent ABX use -Cultures are negative so far continue present regimen Atrial Fibrillation -Rate well controlled, continue present management, on carvedilol Hypertension -BP stable DM -type 2 -ssi insulin for glucose control CKD, stage 3 -follows with Dr Crane -creat is 1.4, stable at baseline MOrbid obesity, bmi 45 -outpatient follow up -pt will benefit from outpatient sleep study Congestive heart failuire -h/o diastolic CHF? lVH on previous echo -repeat Echo results pending -IV Lasix x1 patient is a negative fluid balance see if this helps patients get off oxygen Restless leg syndrome -resume home meds, stable DVT on coumadin Diet Carb consistent,cardiac Full code Medical - PN: Qual - Stroke Symptom Onset Unknown: No - VTE Deep Vein Thrombosis/Pulmonary Embolism Present on Admission: No
[2018-11-10] MEDS ORDERED: WARFARIN 5 MG TABLET PO ONE (14:00)
[2018-11-11] MEDS: IPRATROPIUM/ALBUTEROL 3 ML AMPUL.NEB NEB SCH ×6 (03:10→22:06)
[2018-11-11] MEDS: metroNIDAZOLE 500 MG/100 ML BAG IV SCH ×3 (05:19→21:32)
[2018-11-11] MEDS: 0.9 % SODIUM CHLORIDE 10 ML SYRINGE IV SCH ×3 (05:19→21:32)
[2018-11-11 06:11] LABS: Basophils # (Auto) 0 K/mcL (0.0-0.3); Basophils % (Auto) 0.3 % (0.0-2.0); Eosinophils # (Auto) 0 K/mcL (0.0-0.7); Eosinophils % (Auto) 0.1 % (0.0-7.0); Granulocytes % (Auto) 68.3 % (38.0-78.0); Hematocrit 45.4 % (36.0-48.0); Hemoglobin 14.2 g/dL (12.0-15.0); Lymphocytes # (Auto) 1.8 K/mcL (1.5-4.8); Mean Cell Volume 97.9 fL (80.0-100.0); Mean Corpuscular HGB Conc 31.2 g/dL (31.0-36.0); Mean Platelet Volume 7.3 fL (7.4-10.4); Monocytes # (Auto) 0.7 K/mcL (0.1-0.9); Monocytes % (Auto) 8.3 % (1.0-12.0); Platelet Count 220 K/mcL (140-440); RBC 4.64 M/mcL (4.00-5.20); Red Cell Distribution Width 15.7 % (11.5-14.5); WBC 7.9 K/mcL (4.5-11.0)
[2018-11-11 06:15] LABS: INR 1.9 (0.9-1.1); Prothrombin Time 21.8 sec (11.9-14.5)
[2018-11-11 06:23] LABS: ALT/SGPT 14 U/l (0-40); AST/SGOT 17 U/l (0-37); Albumin 4.2 gm/dL (3.2-5.2); Albumin/Globulin Ratio 1.2 (1.0-2.3); Alkaline Phosphatase 79 U/L (39-117); Bilirubin,Direct < 0.2 mg/dL (0.0-0.3); Bilirubin,Total 0.3 mg/dL (0.0-1.0); Blood Urea Nitrogen 50 mg/dl (8-23); Calcium 9.5 mg/dl (8.6-10.4); Carbon Dioxide 33 mmol/L (22-30); Chloride 92 mmol/L (96-108); Globulin 3.6 gm/dL (2.2-3.7); Glomerular Filtration Rate 32; Glucose 58 mg/dL (70-105); Lactate Dehydrogenase 313 U/L (94-250); Phosphorous 3.6 mg/dL (2.7-4.5); Triglycerides 102 mg/dl (<150)
[2018-11-11] MEDS: glipiZIDE 5 MG TABLET PO SCH ×2 (07:30→17:16)
[2018-11-11] MEDS: INSULIN LISPRO 1 UNIT/0.01 ML UNIT SQ SCH ×4 (07:32→21:32)
--- NOTE | 2018-11-11 08:19 | Internal Med Progress Note ---
Medical - PN: Subj Patient information: Note initiated : 11/11/18 at 8:17 am Service Date, if different from initiated Date: [] Patient: Aidee Zepeda a 73 y/o F admitted on 11/08/18 for Short of Breath. Chief Complaint: [] Interval history: Ms. Zepeda is a 73 year old F with history of diastolic heart failure, atrial fibrillation obesity presents to the hospital today for evaluation of shortness of breath. The patient notes she has chronically been short of breath for many months, she also has some intermittent dizziness that has been documented previously. This has been progressively getting worse over the last few days, early this morning around 3 or 4 she had chest tightness or chest pain as she reports when she was sleeping. She had some cough but is unable to characterize any sputum for me. Shortness of breath is worse when she lies down chest pain is worse when she lies down better when she gets up. There is also a pleuritic nature to her chest pain which is better when she is on the lateral side rather than on her back. She therefore came to the emergency room for further evaluation. She denies any fevers yesterday, denies any difficulty in swallowing denies any cough while eating, denies any headache but does admits to chronic dizziness, she still has some chest discomfort when she lies back but not when she is sitting up, she denies any nausea vomiting abdominal pain denies any bowel bladder complaints denies any new joint pains skin rashes, she does have chronic depression anxiety otherwise no acute complaints She notes that her primary care provider wants to start her on oxygen however she is not sure why she says is because she is short of breath she denies any hi story of smoking and her last echo shows a normal ejection fraction 4 years ago, she does not want to wear a sleep apnea mask and therefore has not done the sleep study so far. On presenting to the emergency room patient had a low-grade temperature of 99.5 heart rate 100-1 20 blood pressure 169/115 saturating more than 90% but needed 4 L of oxygen. At baseline she does not use oxygen at home. The patient does not have a white count, her creatinine is 1.5 which is around baseline Chest x-ray shows bilateral pneumonia, possible aspiration, she is being admitted to the hospital for further management. EKG shows atrial fibrillation, she has low voltage, poor R wave progression in chest leads. 11/09 Patient seen and examined, sitting comfortably in her chair, on 2 L of oxygen to keep oxygen saturation more than 90% has no new complaints or concerns feels much better since yesterday. Hemodynamically stable rate well controlled. Labs are stable No growth microbiology 11/10 Patient seen and examined, no acute overnight events. Still on 2 L of oxygen, Patient feels much better. Labs are stable Chest x-ray shows significant improvement but does have bilateral interstitial edema IV Lasix x1 to be given today 11/11 Patient seen and examined sitting comfortably in a chair eating breakfast She has no complaints or concern Ambulating well She is off oxygen, on exam she still has expiratory wheezes The patient's creatinine has bumped up to 1.6, we will hold p.o. Lasix today and monitor her creatinine Anticipate discharge tomorrow if renal function is better and she remained s table Pertinent ROS: Denies headache, dizziness Denies chest pain, palpitations Denies cough or shortness of breath Denies abdominal pain, nausea or vomiting. - Constitutional Vitals: Vital Signs Temp Pulse Resp BP Pulse Ox 96.0 F L 73 18 144/94 91 11/11/18 07:44 11/11/18 08:08 11/11/18 08:08 11/11/18 07:44 11/11/18 08:08 Period Temp Pulse Resp BP Sys/Pardo Pulse Ox Last 24 Hr 96.0 F-98.2 F 70-99 16-18 128-144/81-98 90-99 Intake and Output 11/10/18 11/11/18 11/11/18 21:59 05:59 13:59 Intake Total 750 340 Output Total 750 1200 Balance 0 -860 Weight 256 lb 8 oz Intake & Output: Intake & Output 11/10/18 11/11/18 11/11/18 21:59 05:59 13:59 Intake Total 750 340 Output Total 750 1200 Balance 0 -860 Weight 256 lb 8 oz Intake: IV 150 100 Rocephin 2 gm In Dextrose 5% in 50 Water 50 ml @ 100 mls/hr IV Q24H TINO Rx#:[id number] Oral 600 240 Output: Void Amount 750 1200 Other: Meal Dinner Percent of Meal Consumed 100% Feeding Ability Independent Urine Appearance Clear Urine Color Pale Bright Yellow Urine Odor Normal Stool Size Large Stool Color Brown Stool Consistency Soft Formed # Bowel Movements 1 Exam: Constitutional; Afebrile, cooperative, alert, not in distress. Respiratory system: Air Entry equal on both sides, bilateral expiratory wheezing present patient is speaking full sentences no accessory muscle of respiration used CVS- Rate rhythm regular, S1,S2 heard, no gallop, no rub. Abdomen- Soft nontender abdomen, no organomegaly, no tenderness, no guarding or rigidity, EAR NOSE THROAT SURGEON- AOOx3, moving all extremities, no gross focal deficit noted. Medical - PN: Obj Da - Labs CBC & Chem 7: 11/11/18 04:10 11/11/18 04:10 Labs: Abnormal Lab Results 11/11/18 11/11/18 11/11/18 04:10 04:10 04:10 RDW 15.7 H MPV 7.3 L Gran % Lymph % (Auto) Lymph # (Auto) PT 21.8 H INR 1.9 H ABG Methemoglobin VBG pH VBG pO2 VBG HCO3 VBG Total CO2 VBG O2 Saturation VBG Base Excess Carboxyhemoglobin Chloride 92 L Carbon Dioxide 33 H BUN 50 H Creatinine 1.6 H Glucose 58 L GGT 56 H Lactate Dehydrogenase 313 H 11/10/18 11/10/18 11/10/18 03:53 03:53 03:53 RDW 15.5 H MPV Gran % 79.4 H Lymph % (Auto) 13.2 L Lymph # (Auto) 1.0 L PT 20.6 H INR 1.8 H ABG Methemoglobin VBG pH VBG pO2 VBG HCO3 VBG Total CO2 VBG O2 Saturation VBG Base Excess Carboxyhemoglobin Chloride Carbon Dioxide BUN 45 H Creatinine Glucose GGT 46 H Lactate Dehydrogenase 296 H 11/09/18 11/09/18 11/09/18 10:06 09:16 04:39 RDW MPV 7.3 L Gran % 84.8 H Lymph % (Auto) 9.8 L Lymph # (Auto) 0.7 L PT 18.7 H INR 1.6 H ABG Methemoglobin VBG pH VBG pO2 VBG HCO3 VBG Total CO2 VBG O2 Saturation VBG Base Excess Carboxyhemoglobin Chloride 95 L Carbon Dioxide BUN 36 H Creatinine 1.4 H Glucose 250 H GGT 53 H Lactate Dehydrogenase 296 H 11/08/18 11/08/18 07:56 05:15 RDW MPV Gran % Lymph % (Auto) Lymph # (Auto) PT 18.1 H INR 1.5 H ABG Methemoglobin 0.3 L VBG pH 7.43 H VBG pO2 95 H VBG HCO3 29.3 H VBG Total CO2 30.7 H VBG O2 Saturation 93.6 H VBG Base Excess 4.2 H Carboxyhemoglobin 3.5 H Chloride Carbon Dioxide BUN Creatinine Glucose GGT Lactate Dehydrogenase Meds: Medications Acetaminophen (Tylenol) 650 mg PO Q6HP PRN PRN Reason: PAIN/FEVER > 101 Last Admin: 11/10/18 01:33 Dose: 650 mg Documented by: Albuterol Sulfate (Ventolin) 2.5 mg NEB Q2HP PRN PRN Reason: Shortness Of Breath Albuterol/Ipratropium (Duoneb) 3 ml NEB Q4HRT [facility] Last Admin: 11/11/18 07:00 Dose: 3 ml Documented by: Allopurinol (Zyloprim) 200 mg PO QDAY [facility] Last Admin: 11/10/18 09:45 Dose: 200 mg Documented by: Amlodipine Besylate (Norvasc) 5 mg PO QDAY [facility] Last Admin: 11/10/18 09:46 Dose: 5 mg Documented by: Azithromycin (Zithromax) 250 mg PO DAILY [facility]; Protocol Stop: 11/12/18 09:01 Last Admin: 11/10/18 09:46 Dose: 250 mg Documented by: Calcitriol (Rocaltrol) 0.25 mcg PO Q48@0900 [facility] Last Admin: 11/09/18 09:44 Dose: 0.25 mcg Documented by: Calcium Carbonate/Glycine (Oscal) 1,000 mg PO QDAY [facility] Last Admin: 11/10/18 09:44 Dose: 1,000 mg Documented by: Carvedilol (Coreg) 25 mg PO BIDCC [facility] Last Admin: 11/10/18 17:08 Dose: 25 mg Documented by: Citalopram Hydrobromide (Celexa) 20 mg PO QDAY [facility] Last Admin: 11/10/18 09:45 Dose: 20 mg Documented by: Clonidine HCl (Catapres) 0.1 mg PO Q4HP PRN PRN Reason: Hypertension Dextrose (Dextrose 50%) 0 ml IV UD PRN PRN Reason: Hypoglycemia Diagnostic Test (Pha) (Accu-Chek) 1 each FS ACHS [facility] Last Admin: 11/11/18 07:30 Dose: 1 each Documented by: Docusate Sodium (Colace) 100 mg PO BID [facility] Last Admin: 11/10/18 20:32 Dose: 100 mg Documented by: Gabapentin (Neurontin) 600 mg PO TID [facility] Last Admin: 11/10/18 20:32 Dose: 600 mg Documented by: Glipizide (Glucotrol) 5 mg PO BIDAC [facility] Last Admin: 11/11/18 07:30 Dose: 5 mg Documented by: Glucose (Insta-Glucose) 15 gm PO PRN PRN PRN Reason: Hypoglycemia Ceftriaxone Sodium 2 gm/ (Dextrose) 50 mls @ 100 mls/hr IV Q24H [facility]; Protocol Last Infusion: 11/10/18 16:00 Dose: Infused Documented by: Metronidazole (Flagyl) 500 mg in 100 mls @ 100 mls/hr IV Q8H [facility]; Protocol Last Admin: 11/11/18 05:19 Dose: 100 mls/hr Documented by: Insulin Human Lispro (Humalog) [address] [facility]; Protocol Last Admin: 11/11/18 07:32 Dose: Not Given Documented by: Levetiracetam (Keppra) 500 mg PO BID [facility] Last Admin: 11/10/18 20:32 Dose: 500 mg Documented by: Losartan Potassium (Cozaar) 100 mg PO DAILY [facility] Last Admin: 11/10/18 09:45 Dose: 100 mg Documented by: Naloxone HCl (Narcan) 0.1 mg IV Q2MIN PRN PRN Reason: Opiate Reversal Oxycodone HCl (Roxicodone) 5 mg PO Q4HP PRN PRN Reason: pain not responding to apap Last Admin: 11/10/18 09:44 Dose: 5 mg Documented by: Prednisone (Prednisone) 40 mg PO [facility] Stop: 11/13/18 07:59 Last Admin: 11/10/18 07:30 Dose: 40 mg Documented by: Ropinirole HCl (Requip) 2 mg PO BID [facility] Last Admin: 11/10/18 20:32 Dose: 2 mg Documented by: Sodium Chloride (Saline Flush) 10 ml IV Q8 [facility] Last Admin: 11/11/18 05:19 Dose: 10 ml Documented by: Vitamin D (Vitamin D3) 2,000 unit PO DAILY [facility] Last Admin: 11/10/18 09:45 Dose: 2,000 unit Documented by: Warfarin Sodium (Coumadin Per Pharmacy) 1 order PO UD TINO - ABG Interpretation ABG results: 11/08/18 07:56 ABG Methemoglobin 0.3 L VBG pH 7.43 H VBG pCO2 45.5 VBG pO2 95 H VBG HCO3 29.3 H VBG Total CO2 30.7 H VBG O2 Saturation 93.6 H VBG Base Excess 4.2 H Medical - PN: A/P - Time Spent With Patient Total time spent is greater than 50% in coordination of care (as documented) at patient's floor/unit and/or counseling patient: - Narrative A/P Narrative: A/p Acute hypoxic respiratory failure Pneumonia, community acquired Atrial fibrillatino HTN DM, type 2, CKD, acute kidney injury Morbid Obesity BMI 45 H/o CHF, Diastolic grade 3 Moderate pulmonary hypertension Suspected Obstructive sleep apnea Restless leg syndrome Plan Continue with antibiotic coverage Micrology is negative Continue to monitor oxygen saturation Continue home medication patient will benefit from outpatient sleep study Hold Lasix today Monitor renal function, if creatinine is stable will likely discharge home tomorrow DVT on coumadin Diet Carb consistent,cardiac Full code Medical - PN: Qual - Stroke Symptom Onset Unknown: No - VTE Deep Vein Thrombosis/Pulmonary Embolism Present on Admission: No
[2018-11-11] MEDS: CALCITRIOL 0.25 MCG CAPSULE PO SCH (09:01)
[2018-11-11] MEDS: levETIRAcetam 500 MG TABLET PO SCH ×2 (09:01→21:32)
[2018-11-11] MEDS: LOSARTAN 50 MG TABLET PO SCH (09:02)
[2018-11-11] MEDS: CALCIUM (OYSTER SHELL) 500 MG TABLET PO SCH (09:02)
[2018-11-11] MEDS: ALLOPURINOL 100 MG TABLET PO SCH (09:02)
[2018-11-11] MEDS: CARVEDILOL 12.5 MG TABLET PO SCH ×2 (09:02→17:16)
[2018-11-11] MEDS: VITAMIN D3 1,000 UNIT TABLET PO SCH (09:02)
[2018-11-11] MEDS: predniSONE 20 MG TABLET PO SCH (09:02)
[2018-11-11] MEDS: rOPINIRole 1 MG TABLET PO SCH ×2 (09:02→19:05)
[2018-11-11] MEDS: GABAPENTIN 300 MG CAPSULE PO SCH ×3 (09:02→19:05)
[2018-11-11] MEDS: AZITHROMYCIN 250 MG TABLET PO SCH (09:03)
[2018-11-11] MEDS: DOCUSATE SODIUM 100 MG CAPSULE PO SCH ×2 (09:03→21:31)
[2018-11-11] MEDS: amLODIPine 5 MG TABLET PO SCH (09:03)
[2018-11-11] MEDS: CITALOPRAM 20 MG TABLET PO SCH (09:03)
[2018-11-11] MEDS: cefTRIAXone 2 GM in DEXTROSE 5% IN WATER 50 ML IV SCH (10:11)
[2018-11-11] MEDS ORDERED: WARFARIN 5 MG TABLET PO ONE (14:00)
[2018-11-12] MEDS: IPRATROPIUM/ALBUTEROL 3 ML AMPUL.NEB NEB SCH ×2 (03:08→07:15)
[2018-11-12] MEDS: 0.9 % SODIUM CHLORIDE 10 ML SYRINGE IV SCH (05:46)
[2018-11-12] MEDS: metroNIDAZOLE 500 MG/100 ML BAG IV SCH (05:46)
[2018-11-12 06:48] LABS: INR 2.1 (0.9-1.1); Prothrombin Time 23.1 sec (11.9-14.5)
[2018-11-12 07:18] LABS: Basophils # (Auto) 0 K/mcL (0.0-0.3); Basophils % (Auto) 0.2 % (0.0-2.0); Eosinophils # (Auto) 0 K/mcL (0.0-0.7); Eosinophils % (Auto) 0.4 % (0.0-7.0); Granulocytes % (Auto) 67.3 % (38.0-78.0); Hematocrit 46.2 % (36.0-48.0); Hemoglobin 14.6 g/dL (12.0-15.0); Lymphocytes # (Auto) 1.9 K/mcL (1.5-4.8); Lymphocytes % (Auto) 23.3 % (15.5-49.0); Mean Cell Volume 97.8 fL (80.0-100.0); Mean Corpuscular HGB Conc 31.7 g/dL (31.0-36.0); Mean Platelet Volume 7.5 fL (7.4-10.4); Monocytes # (Auto) 0.7 K/mcL (0.1-0.9); Monocytes % (Auto) 8.8 % (1.0-12.0); Platelet Count 227 K/mcL (140-440); RBC 4.72 M/mcL (4.00-5.20); Red Cell Distribution Width 15.4 % (11.5-14.5); WBC 8.2 K/mcL (4.5-11.0)
[2018-11-12] MEDS: INSULIN LISPRO 1 UNIT/0.01 ML UNIT SQ SCH (07:31)
[2018-11-12] MEDS: glipiZIDE 5 MG TABLET PO SCH (07:38)
[2018-11-12] MEDS: predniSONE 20 MG TABLET PO SCH (07:38)
[2018-11-12] MEDS: CARVEDILOL 12.5 MG TABLET PO SCH (07:39)
[2018-11-12 07:51] LABS: ALT/SGPT 16 U/l (0-40); AST/SGOT 20 U/l (0-37); Albumin 4.1 gm/dL (3.2-5.2); Albumin/Globulin Ratio 1.1 (1.0-2.3); Alkaline Phosphatase 76 U/L (39-117); Bilirubin,Direct < 0.2 mg/dL (0.0-0.3); Bilirubin,Total 0.3 mg/dL (0.0-1.0); Blood Urea Nitrogen 53 mg/dl (8-23); Calcium 9.5 mg/dl (8.6-10.4); Carbon Dioxide 27 mmol/L (22-30); Chloride 94 mmol/L (96-108); Globulin 3.6 gm/dL (2.2-3.7); Glomerular Filtration Rate 30; Glucose 40 mg/dL (70-105); Lactate Dehydrogenase 326 U/L (94-250); Phosphorous 3.5 mg/dL (2.7-4.5); Triglycerides 117 mg/dl (<150)
[2018-11-12] MEDS: rOPINIRole 1 MG TABLET PO SCH (09:18)
[2018-11-12] MEDS: DOCUSATE SODIUM 100 MG CAPSULE PO SCH (09:18)
[2018-11-12] MEDS: CITALOPRAM 20 MG TABLET PO SCH (09:18)
[2018-11-12] MEDS: cefTRIAXone 2 GM in DEXTROSE 5% IN WATER 50 ML IV SCH (09:18)
[2018-11-12] MEDS: VITAMIN D3 1,000 UNIT TABLET PO SCH (09:18)
[2018-11-12] MEDS: CALCIUM (OYSTER SHELL) 500 MG TABLET PO SCH (09:18)
[2018-11-12] MEDS: GABAPENTIN 300 MG CAPSULE PO SCH (09:18)
[2018-11-12] MEDS: amLODIPine 5 MG TABLET PO SCH (09:18)
[2018-11-12] MEDS: ALLOPURINOL 100 MG TABLET PO SCH (09:18)
[2018-11-12] MEDS: LOSARTAN 50 MG TABLET PO SCH (09:18)
[2018-11-12] MEDS: levETIRAcetam 500 MG TABLET PO SCH (09:18)
[2018-11-12] MEDS: AZITHROMYCIN 250 MG TABLET PO SCH (09:27)
--- NOTE | 2018-11-12 10:09 | Discharge Summary ---
Medical - DS: Prov Patient information: Note initiated : 11/12/18 at 10:05 am Service Date, if different from initiated Date: [] Patient: Aidee Zepeda 73 y/o F admitted on 11/08/18 for Short of Breath. Chief Complaint: [] Date of admission: 11/08/18 10:18 Discharge date: 11/12/18 Primary care physician: Te Joyce Consults: 11/08/18 Consult to Physician [CONS] Stat Comment: Consulting Provider: Lio Cuellar Reason For Exam: Physician to Consult Discharging clinician: Lio Cuellar Medical - DS: Meds - Discharge Medications Prescriptions: Levofloxacin 750 mg PO Q48 #2 tab metroNIDAZOLE [Flagyl] 500 mg PO TID #9 tab Active and Home Medications: Home Medications vitamin b-12 1,000 mcg PO QDAY 10/14/14 [History Confirmed 11/08/18 Last Taken Unknown] diabetic shoes #1 each 06/13/15 [Rx Confirmed 10/30/18 Last Taken Unknown] calcium carbonate 500 mg calcium (1,250 mg) tablet 1,000 mg PO QDAY tab 04/22/18 [History Confirmed 11/08/18 Last Taken Unknown] cholecalciferol (vitamin D3) 1,000 unit capsule 2,000 unit PO QDAY cap 04/22/18 [History Confirmed 11/08/18 Last Taken Unknown] levetiracetam 500 mg tablet 500 mg PO BID tab 04/22/18 [History Confirmed 11/08/18 Last Taken Unknown] citalopram 20 mg tablet 20 mg PO QDAY #90 tab 05/26/18 [Rx Confirmed 11/08/18 Last Taken Unknown] amlodipine 5 mg tablet 5 mg PO QDAY #90 tab 06/12/18 [Rx Confirmed 11/08/18 Last Taken Unknown] carvedilol 25 mg tablet 25 mg PO BID #180 tab 07/21/18 [Rx Confirmed 11/08/18 Last Taken Unknown] furosemide 40 mg tablet 40 mg PO QDAY #90 tab 07/21/18 [Rx Confirmed 11/08/18 Last Taken Unknown] losartan 100 mg tablet 100 mg PO QDAY #90 tab 07/21/18 [Rx Confirmed 11/08/18 Last Taken Unknown] gabapentin 300 mg capsule 600 mg PO TID #540 cap 09/18/18 [Rx Confirmed 11/08/18 Last Taken Unknown] ropinirole 2 mg tablet 2 mg PO BID #180 tab 09/22/18 [Rx Confirmed 11/08/18 Last Taken Unknown] calcitriol 0.25 mcg capsule 0.25 mcg PO Q OTHER DAY #45 cap 10/12/18 [Rx Confirmed 11/08/18 Last Taken Unknown] allopurinol 100 mg tablet 200 mg PO QDAY #180 tab 10/13/18 [Rx Confirmed 11/08/18 Last Taken Unknown] glipizide 5 mg tablet 5 mg PO BID #60 tab 10/20/18 [Rx Confirmed 11/08/18 Last Taken Unknown] docusate sodium 100 mg capsule 100 mg PO BID #180 cap 10/28/18 [Rx Confirmed 11/08/18 Last Taken Unknown] warfarin 5 mg tablet 5 mg PO .COMPLEX #100 tab 10/30/18 [Rx Confirmed 11/08/18 Last Taken Unknown] Medical - DS: Hosp Hospital course: Ms. Zepeda is a 73 year old F with history of diastolic heart failure, atrial fibrillation obesity presents to the hospital today for evaluation of shortness of breath. The patient notes she has chronically been short of breath for many months, she also has some intermittent dizziness that has been documented previously. This has been progressively getting worse over the last few days, early this morning around 3 or 4 she had chest tightness or chest pain as she reports when she was sleeping. She had some cough but is unable to characterize any sputum for me. Shortness of breath is worse when she lies down chest pain is worse when she lies down better when she gets up. There is also a pleuritic nature to her chest pain which is better when she is on the lateral side rather than on her back. She therefore came to the emergency room for further evaluation. She denies any fevers yesterday, denies any difficulty in swallowing denies any cough while eating, denies any headache but does admits to chronic dizziness, she still has some chest discomfort when she lies back but not when she is sitting up, she denies any nausea vomiting abdominal pain denies any bowel bladder complaints denies any new joint pains skin rashes, she does have chronic depression anxiety otherwise no acute complaints She notes that her primary care provider wants to start her on oxygen however she is not sure why she says is because she is short of breath she denies any history of smoking and her last echo shows a normal ejection fraction 4 years ago, she does not want to wear a sleep apnea mask and therefore has not done the sleep study so far. On presenting to the emergency room patient had a low-grade temperature of 99.5 heart rate 100-1 20 blood pressure 169/115 saturating more than 90% but needed 4 L of oxygen. At baseline she does not use oxygen at home. The patient does not have a white count, her creatinine is 1.5 which is around baseline Chest x-ray shows bilateral pneumonia, possible aspiration, she is being admitted to the hospital for further management. EKG shows atrial fibrillation, she has low voltage, poor R wave progression in chest leads. 11/09 Patient seen and examined, sitting comfortably in her chair, on 2 L of oxygen to keep oxygen saturation more than 90% has no new complaints or concerns feels much better since yesterday. Hemodynamically stable rate well controlled. Labs are stable No growth microbiology 11/10 Patient seen and examined, no acute overnight events. Still on 2 L of oxygen, Patient feels much better. Labs are stable Chest x-ray shows significant improvement but does have bilateral interstitial edema IV Lasix x1 to be given today 11/11 Patient seen and examined sitting comfortably in a chair eating breakfast She has no complaints or concern Ambulating well She is off oxygen, on exam she still has expiratory wheezes The patient's creatinine has bumped up to 1.6, we will hold p.o. Lasix today and monitor her creatinine Anticipate discharge tomorrow if renal function is better and she remained stable 11/12 Patient seen and examined no acute overnight events. Sitting comfortably in chair has no complaints. No fever no shortness of breath. Labs are stable creatinine is 1.7 on further review for the trend of her creatinine this is at baseline the 1.1 creatinine we had was likely abnormality. The patient is stable for discharge she will be discharged on oral levofloxacin 750 mg every 48 hours for 2 more days and metronidazole 500 mg 3 times a day for 3 days. In summary This is a 73-year-old female admitted to the hospital with a diagnosis of community-acquired pneumonia versus aspiration pneumonia. She was treated with a diagnosis of pneumonia as well as COPD exacerbation. She responded to treatment very well microbiology was negative and at the time of discharge she was off oxygen. I do not believe she would benefit from any further steroid treatment as she has no wheezing, she will continue with a home dose regimen for her COPD. The patient is morbidly obese with a BMI of 44, her oxygen level is borderline, although she does not qualify for oxygen at this time I suspect that she will need oxygen in the future. The patient echocardiogram was done which shows she has diastolic dysfunction and mild to moderate pulmonary hypertension, I believe the patient will benefit from a sleep study and I have tried to convince her to agree to one. I have made no changes to her chronic home medication list she will take all her medications as prescribed by her regular provider Discharge diagnosis: pneumonia, copd exacerbation - Time Spent with Patient Total time spent providing and/or coordinating discharge services: Greater than 30 minutes Medical - DS: Exam - Constitutional Vitals: Vital Signs Temp Pulse Pulse Resp BP BP Pulse Ox 11/12/18 08:30 90 120/66 92 11/12/18 07:43 97.8 F 89 22 166/110 90 11/12/18 07:17 90 11/12/18 07:15 100 H 16 11/12/18 03:13 97.6 F 84 16 143/96 92 11/12/18 03:11 78 18 11/11/18 23:20 97.4 F 89 20 122/81 93 11/11/18 19:15 97.5 F 101 H 20 147/88 91 11/11/18 18:30 73 18 11/11/18 16:00 97.7 F 103 H 18 129/75 90 11/11/18 14:53 73 18 11/11/18 12:00 96.3 F L 98 H 105/67 92 Intake and Output 11/11/18 11/12/18 11/12/18 21:59 05:59 13:59 Intake Total 740 700 Output Total 950 1300 Balance -210 -600 Intake: IV 100 100 Oral 640 600 Output: Void Amount 950 1300 Other: Meal Dinner berries and cream Percent of Meal Consumed 100% 100% Feeding Ability Independent Independent Urine Color Dark Yellow Dark Yellow Urine Odor Normal Stool Size Moderate Stool Color Brown Stool Consistency Soft Formed # Voids 1 # Bowel Movements 1 Weight 256 lb 8 oz Additional comments: Constitutional; Afebrile, cooperative, alert, not in distress. Eyes- No icterus, , No periorbital swelling Ears- Ext ear normal, hearing normal to conversation. Neck- Midline trachea, supple Respiratory system: Air Entry equal on both sides, No crackles or wheezing, no rhonchi. CVS- Rate rhythm regular, S1,S2 heard, no gallop, no rub. Abdomen- Soft nontender abdomen, no organomegaly, no tenderness, no guarding or rigidity, PIANO PROFESSOR- AOOx3, moving all extremities, no gross focal deficit noted. Medical - DS: Data Labs on day of discharge: Labs from last 24 hours 11/12/18 11/12/18 11/12/18 04:10 04:10 04:10 WBC 8.2 RBC 4.72 Hgb 14.6 Hct 46.2 MCV 97.8 MCH 31.0 MCHC 31.7 RDW 15.4 H Plt Count 227 MPV 7.5 Gran % 67.3 Lymph % (Auto) 23.3 Dawson % (Auto) 8.8 Eos % (Auto) 0.4 Baso % (Auto) 0.2 Gran # 5.5 Lymph # (Auto) 1.9 Dawson # (Auto) 0.7 Eos # (Auto) 0 Baso # (Auto) 0 PT 23.1 H INR 2.1 H Sodium 136 Potassium 4.4 Chloride 94 L Carbon Dioxide 27 Anion Gap 15.0 BUN 53 H Creatinine 1.7 H GFR Calculation 30 Glucose 40 L Uric Acid 7.0 Calcium 9.5 Phosphorus 3.5 Magnesium 2.2 Total Bilirubin 0.3 Direct Bilirubin < 0.2 GGT 63 H AST 20 ALT 16 Alkaline Phosphatase 76 Lactate Dehydrogenase 326 H Total Protein 7.7 Albumin 4.1 Globulin 3.6 Albumin/Globulin Ratio 1.1 Triglycerides 117 Preliminary micro results at discharge 11/08/18 10:07 Blood Culture - Preliminary Blood 11/08/18 10:01 Blood Culture - Preliminary Blood Medical - DS: A/P - Patient/Caregiver Discharge Instructions Activity: increase activity as tolerated Diet: Cardiac Additional Instructions: Follow-up with your primary care provider in 1 week Take levofloxacin 750 mg 1 tablet every other day, total of 2 doses Take metronidazole 500 mg 3 times a day for 3 days I have made no changes to your chronic home medication list please take them as prescribed by her regular provider Make sure you check your INR in 3 days follow-up the results with your primary provider Please consider getting a sleep study done as an outpatient talk to your primary care provider to order this study. - Follow up Plan Follow up with: Te Joyce MD [Primary Care Provider] - Disposition: Home, Self-Care Prognosis: Fair Rehab Potential: Fair I certify that the patient requires SNF services: No Overall status at discharge: patient is progressing back to baseline Medical - DS: Qual - VTE Deep Vein Thrombosis/Pulmonary Embolism Present on Admission: No
[2018-11-12] MEDS ORDERED: WARFARIN 5 MG TABLET PO ONE (14:00)
== END 2018-11-12 11:25 | disposition home or self-care (01) | DRG 177 ==
LOC: ED 05:23 → MEDSUR 10:10
PROVIDERS: ADMIT Internal Medicine; ATTEND Internal Medicine

== ENCOUNTER 2023-08-16 11:28 | Inpatient (IN) ==
[2023-08-16 12:04] LABS: Basophils # (Auto) 0.02 K/mcL (0.00-0.30); Basophils % (Auto) 0.4 % (0.0-2.0); Eosinophils # (Auto) 0.12 K/mcL (0.00-0.70); Eosinophils % (Auto) 2.5 % (0.0-7.0); Hematocrit 35.4 % (34.1-44.9); Hemoglobin 10.2 g/dL (11.2-15.7); Lymphocytes # (Auto) 1.37 K/mcL (1.50-4.80); Lymphocytes % (Auto) 28.9 % (15.5-49.0); Mean Cell Volume 100.6 fL (80.0-100.0); Mean Corpuscular HGB Conc 28.8 g/dL (31.0-36.0); Mean Platelet Volume 9.2 fL (8.8-12.5); Monocytes # (Auto) 0.48 K/mcL (0.10-0.90); Monocytes % (Auto) 10.1 % (1.0-12.0); Neutrophils % (Auto) 58.1 % (38.0-78.0); Platelet Count 182 K/mcL (140-440); RBC 3.52 M/mcL (3.59-5.38); WBC 4.7 K/mcL (4.5-11.0)
[2023-08-16 12:10] LABS: ABG Methemoglobin 0.4 % (0.4-1.5); Total Hemoglobin 11.6 gm/Dl (12.0-15.0); VBG Base Excess 0 (-2-3); VBG HCO3 28.2 mmol/L (24.0-28.0); VBG PCO2 62.6 mmHg (41.0-51.0); VBG PH 7.27 U (7.32-7.42); VBG PO2 49.9 mmHg (25.0-40.0); VBG Total CO2 30.1 mmol/L (25.0-29.0)
[2023-08-16] MEDS: IPRATROPIUM/ALBUTEROL 3 ML AMPUL.NEB NEB ONE ×2 (12:23→13:20)
[2023-08-16] MEDS: methylPREDNISolone SOD SUCC 125 MG/2 ML VIAL IV ONE (12:25)
[2023-08-16] MEDS: GABAPENTIN 300 MG CAPSULE PO ONE (12:25)
[2023-08-16] MEDS: FUROSEMIDE 20 MG/2 ML VIAL IV ONE (12:25)
[2023-08-16 13:05] LABS: Blood Urea Nitrogen 42 mg/dL (8-23); Calcium 8.3 mg/dL (8.6-10.4); Carbon Dioxide 30 mmol/L (22-30); Chloride 103 mmol/L (96-108); Glomerular Filtration Rate 25; Glucose 90 mg/dL (70-105)
[2023-08-16 14:28] LABS: Prothrombin Time 32.4 sec (11.9-14.5)
[2023-08-16 15:23] LABS: ABG Methemoglobin 0.3 % (0.4-1.5); Total Hemoglobin 11.5 gm/Dl (12.0-15.0); VBG Base Excess -2 (-2-3); VBG HCO3 25.1 mmol/L (24.0-28.0); VBG Oxygen Saturation 89.5 % (40.0-70.0); VBG PCO2 56.2 mmHg (41.0-51.0); VBG PH 7.27 U (7.32-7.42); VBG PO2 72.4 mmHg (25.0-40.0); VBG Total CO2 26.8 mmol/L (25.0-29.0)
[2023-08-16] MEDS ORDERED: HYDROcodone/APAP (PP) 5/325MG TABLET (#4) PO PRN (19:10)
[2023-08-16] MEDS ORDERED: BISACODYL 10 MG SUPP.RECT PR PRN (19:10)
[2023-08-16] MEDS ORDERED: SENNOSIDES 1 TABLET PO PRN (19:17)
[2023-08-16] MEDS ORDERED: LACTULOSE 20 GM/30 ML ORAL.SOL PO PRN (19:17)
[2023-08-16] MEDS ORDERED: DEXTROSE 50% 50 ML VIAL IV PRN (19:17)
[2023-08-16] MEDS ORDERED: DEXTROSE 31 GM ORAL.SUSP PO PRN (19:17)
[2023-08-16] MEDS ORDERED: ONDANSETRON 4 MG/2 ML VIAL IV PRN (19:17)
[2023-08-16] MEDS ORDERED: guaiFENesin/DEXTROMETHORPHAN 5ML UD CUP PO PRN (19:17)
[2023-08-16] MEDS: IPRATROPIUM/ALBUTEROL 3 ML AMPUL.NEB NEB SCH (19:48)
[2023-08-16] MEDS ORDERED: ONDANSETRON 4 MG ODT TABLET SL PRN (20:24)
[2023-08-16] MEDS ORDERED: POLYETHYLENE GLYCOL 3350 17 GM PACKET PO PRN (20:36)
[2023-08-16] MEDS ORDERED: MAGNESIUM HYDROXIDE 30 ML ORAL.SUSP PO PRN (20:39)
[2023-08-16] MEDS ORDERED: SENNOSIDES 1 TABLET PO SCH (21:00)
[2023-08-16] MEDS: DILTIAZEM HCL 90 MG PO SCH (22:21)
[2023-08-16] MEDS: [UNRECOGNIZED DRUG - OTHER] PO SCH (22:21)
[2023-08-16] MEDS: DOCUSATE SODIUM 100 MG CAPSULE PO SCH (22:21)
[2023-08-16] MEDS: glipiZIDE 5 MG TABLET PO SCH (22:21)
[2023-08-16] MEDS: clonazePAM 0.5 MG TABLET PO SCH (22:21)
[2023-08-16] MEDS: GABAPENTIN 300 MG CAPSULE PO SCH (22:22)
[2023-08-16] MEDS: FUROSEMIDE 40 MG/4 ML VIAL IV SCH (22:22)
[2023-08-16] MEDS: methylPREDNISolone SOD SUCC 125 MG/2 ML VIAL IV SCH (22:23)
[2023-08-16] MEDS: 0.9 % SODIUM CHLORIDE 10 ML SYRINGE IV SCH (22:23)
[2023-08-16] MEDS: INSULIN LISPRO 1 UNIT/0.01 ML UNIT SQ SCH (23:05)
[2023-08-17 06:16] LABS: Basophils # (Auto) 0.01 K/mcL (0.00-0.30); Basophils % (Auto) 0.2 % (0.0-2.0); Eosinophils # (Auto) 0 K/mcL (0.00-0.70); Eosinophils % (Auto) 0 % (0.0-7.0); Hematocrit 35.2 % (34.1-44.9); Hemoglobin 10.6 g/dL (11.2-15.7); Lymphocytes # (Auto) 0.47 K/mcL (1.50-4.80); Lymphocytes % (Auto) 9.8 % (15.5-49.0); Mean Cell Volume 98.3 fL (80.0-100.0); Mean Corpuscular HGB Conc 30.1 g/dL (31.0-36.0); Monocytes # (Auto) 0.05 K/mcL (0.10-0.90); Neutrophils % (Auto) 88.6 % (38.0-78.0); Platelet Count 188 K/mcL (140-440); RBC 3.58 M/mcL (3.59-5.38); Red Cell Distribution Width 14.5 % (11.5-14.5); WBC 4.8 K/mcL (4.5-11.0)
[2023-08-17 06:30] LABS: ALT/SGPT 8 U/L (<40); AST/SGOT 18 U/L (<32); Albumin/Globulin Ratio 1.2 (1.0-2.3); Alkaline Phosphatase 90 U/L (39-117); Bilirubin,Total 0.6 mg/dL (0.1-1.0); Blood Urea Nitrogen 46 mg/dL (8-23); Calcium 8.9 mg/dL (8.6-10.4); Carbon Dioxide 29 mmol/L (22-30); Chloride 99 mmol/L (96-108); Globulin 3.4 gm/dL (2.2-3.7); Glomerular Filtration Rate 27; Glucose 229 mg/dL (70-105)
[2023-08-17 06:45] LABS: Estimated Average Glucose(eAG) 131 mg/dL; Hemoglobin A1C 6.2 % Hgb (4.0-6.0)
[2023-08-17 06:50] LABS: INR 2.6 (0.9-1.1); Prothrombin Time 29.1 sec (11.9-14.5)
[2023-08-17] MEDS ORDERED: WARFARIN 5 MG TABLET PO SCH (09:00)
[2023-08-17] MEDS: buPROPion 150 MG TAB.SR.12H PO SCH (09:44)
[2023-08-17] MEDS: amLODIPine 10 MG TABLET PO SCH (09:45)
[2023-08-17] MEDS: LOSARTAN 50 MG TABLET PO SCH ×2 (09:45→11:12)
[2023-08-17] MEDS: DILTIAZEM 30 MG TABLET PO SCH (09:45)
[2023-08-17] MEDS: ALLOPURINOL 100 MG TABLET PO SCH (09:45)
[2023-08-17] MEDS: glipiZIDE 5 MG TABLET PO SCH (09:46)
[2023-08-17] MEDS: PANTOPRAZOLE 40 MG PACKET PO SCH (09:46)
[2023-08-17] MEDS: AZITHROMYCIN 250 MG TABLET PO SCH (09:46)
[2023-08-17] MEDS: DESVENLAFAXINE SUCCINATE 100 MG PO SCH (11:12)
[2023-08-17] MEDS: WARFARIN 3 MG TABLET PO ONE (15:11)
[2023-08-17] MEDS ORDERED: glipiZIDE 5 MG TABLET PO SCH (17:00)
[2023-08-17] MEDS: oxyCODONE IR 5 MG TABLET PO PRN (20:19)
[2023-08-17] MEDS ORDERED: DILTIAZEM HCL 90 MG PO SCH (21:00)
[2023-08-17] MEDS ORDERED: FUROSEMIDE 20 MG TABLET PO SCH (21:00)
[2023-08-18 06:43] LABS: ALT/SGPT 5 U/L (<40); AST/SGOT 23 U/L (<32); Albumin/Globulin Ratio 1.3 (1.0-2.3); Alkaline Phosphatase 83 U/L (39-117); Bilirubin,Total 0.5 mg/dL (0.1-1.0); Blood Urea Nitrogen 51 mg/dL (8-23); Calcium 9.1 mg/dL (8.6-10.4); Carbon Dioxide 31 mmol/L (22-30); Chloride 97 mmol/L (96-108); Globulin 3.2 gm/dL (2.2-3.7); Glomerular Filtration Rate 31; Glucose 233 mg/dL (70-105)
[2023-08-18 07:00] LABS: INR 2.8 (0.9-1.1); Prothrombin Time 30.8 sec (11.9-14.5)
[2023-08-18 07:47] LABS: Basophils # (Auto) 0.01 K/mcL (0.00-0.30); Basophils % (Auto) 0.2 % (0.0-2.0); Eosinophils # (Auto) 0 K/mcL (0.00-0.70); Eosinophils % (Auto) 0 % (0.0-7.0); Hematocrit 34.3 % (34.1-44.9); Hemoglobin 10.5 g/dL (11.2-15.7); Lymphocytes # (Auto) 0.58 K/mcL (1.50-4.80); Lymphocytes % (Auto) 8.8 % (15.5-49.0); Mean Cell Volume 95.3 fL (80.0-100.0); Mean Corpuscular HGB Conc 30.6 g/dL (31.0-36.0); Mean Platelet Volume 9.2 fL (8.8-12.5); Monocytes # (Auto) 0.23 K/mcL (0.10-0.90); Monocytes % (Auto) 3.5 % (1.0-12.0); Neutrophils % (Auto) 86.9 % (38.0-78.0); Platelet Count 214 K/mcL (140-440); WBC 6.6 K/mcL (4.5-11.0)
[2023-08-18] MEDS ORDERED: buPROPion 150 MG TAB.SR.12H PO SCH (09:00)
[2023-08-18] MEDS ORDERED: DESVENLAFAXINE SUCCINATE 50 MG PO SCH (09:00)
[2023-08-18] MEDS: ACETAMINOPHEN 325 MG TABLET PO PRN (09:12)
[2023-08-18] MEDS ORDERED: DEXTROSE 31 GM ORAL.SUSP PO PRN (11:59)
[2023-08-18] MEDS ORDERED: DEXTROSE 50% 50 ML VIAL IV PRN (11:59)
[2023-08-18] MEDS: INSULIN LISPRO 1 UNIT/0.01 ML UNIT SQ SCH (12:22)
[2023-08-18] MEDS: WARFARIN 5 MG TABLET PO ONE (14:58)
[2023-08-18] MEDS: FUROSEMIDE 40 MG TABLET PO SCH (17:23)
[2023-08-18] MEDS ORDERED: METOPROLOL TARTRATE 5 MG/5 ML VIAL IV PRN (21:48)
[2023-08-19 06:43] LABS: Basophils # (Auto) 0.01 K/mcL (0.00-0.30); Basophils % (Auto) 0.2 % (0.0-2.0); Eosinophils # (Auto) 0 K/mcL (0.00-0.70); Eosinophils % (Auto) 0 % (0.0-7.0); Hematocrit 32.8 % (34.1-44.9); Hemoglobin 9.9 g/dL (11.2-15.7); Lymphocytes # (Auto) 0.45 K/mcL (1.50-4.80); Lymphocytes % (Auto) 9.1 % (15.5-49.0); Mean Cell Volume 97.6 fL (80.0-100.0); Mean Corpuscular HGB Conc 30.2 g/dL (31.0-36.0); Mean Platelet Volume 9.4 fL (8.8-12.5); Monocytes # (Auto) 0.27 K/mcL (0.10-0.90); Monocytes % (Auto) 5.5 % (1.0-12.0); Neutrophils % (Auto) 84.8 % (38.0-78.0); Platelet Count 206 K/mcL (140-440); RBC 3.36 M/mcL (3.59-5.38)
[2023-08-19 07:28] LABS: ALT/SGPT < 5 U/L (<40); AST/SGOT 18 U/L (<32); Albumin 3.9 gm/dL (3.2-5.2); Albumin/Globulin Ratio 1.3 (1.0-2.3); Alkaline Phosphatase 72 U/L (39-117); Bilirubin,Total 0.3 mg/dL (0.1-1.0); Blood Urea Nitrogen 57 mg/dL (8-23); Carbon Dioxide 31 mmol/L (22-30); Chloride 95 mmol/L (96-108); Globulin 2.9 gm/dL (2.2-3.7); Glomerular Filtration Rate 31; Glucose 224 mg/dL (70-105)
[2023-08-19] MEDS: predniSONE 20 MG TABLET PO SCH (08:00)
[2023-08-19 08:02] LABS: INR 3.2 (0.9-1.1); Prothrombin Time 34.5 sec (11.9-14.5)
[2023-08-19 12:02] VITALS: TEMP 97.2; O2SAT 100
== END 2023-08-19 13:16 | DRG 291 ==
LOC: ED 11:28 → ICU 18:55
PROVIDERS: ADMIT Internal Medicine; ATTEND Internal Medicine